=== PATIENT | male | born 1960 | race Caucasian/White ===

== ENCOUNTER 2021-12-28 10:50 | Emergency (ER) | payer OTHER, SELFPAY ==
[2021-12-28] VITALS (19 sets, daily range): BP systolic 68–102; BP diastolic 52–67; PULSE 77–100; RESP 15–18; TEMP 35.8–36.9; O2SAT 93–100; BMI 24.0
--- NOTE | 2021-12-28 11:52 | CT_ITS ---
STUDY: CT ABDOMEN AND PELVIS WITH CONTRAST REASON FOR EXAM: Male, 61 years old. Abdominal pain for several weeks. Six-day history of constipation. Elevated white cell count. RADIATION DOSAGE (If Supplied By Facility): CTDIvol = ( 10.34 ) mGy, DLP = ( 592.83 ) mGycm TECHNIQUE: Transaxial images were obtained from the dome of the diaphragm to the symphysis pubis with oral contrast. Oral and amp; IV Gastrografin and amp; 100mL Isovue-300 was administered. Sagittal and coronal images were reconstructed. Individualized dose optimization techniques were used for this CT. COMPARISON: None. FINDINGS: Tiny left pleural effusion. Patchy infiltrate versus atelectasis in the posterior medial segment of the left lower lobe as well as in the posterolateral aspect of the lingular segment of the left upper lobe. Mild increased markings at the right lung base. The visualized portions of the heart are within normal limits. There is decreased attenuation of the liver consistent with steatosis. Small amount of perihepatic fluid. Normal gallbladder and extrahepatic biliary system. Normal spleen. There is evidence of a 14.2 cm x 2.6 cm x 10.8 cm loculated fluid collection in the perisplenic space in the left upper quadrant. There is also evidence of a rounded 4.2 cm x 3.3 cm x 3.9 cm fluid collection adherent to the greater curvature of the stomach in the region of the lesser sac. This may represent omental metastasis. There is dilatation of the pancreatic duct in the region of the body and tail portions of the pancreas. Small amount of left anterior pararenal fluid collection. Normal bilateral adrenal glands. Normal right kidney. There is a 9 mm cyst in the medial lower pole of the left kidney. Normal visualized stomach. Mildly dilated ileal loops. There is diffuse circumferential wall thickening of the proximal transverse colon up to the region of the splenic flexure with diffuse increased markings in the surrounding mesentery. Diffuse neoplastic process such as lymphoma with omental metastasis within the root of the mesentery should be ruled out. The appendix is visualized and appears normal. 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 A stent is seen in the right common iliac artery. There is obstruction of both common iliac arteries with reconstitution in the region of the external iliac arteries bilaterally. Mural thrombus is seen within the proximal abdominal aorta. Normal inferior vena cava. Normal retroperitoneum. Normal urinary bladder. Small amount of fluid is seen in the pelvis. Small right inguinal hernia containing fluid. Findings suggestive of metastatic skeletal metastasis. Heterogeneous appearance of the visualized thoracic and lumbar vertebrae. Metastatic deposits should be ruled out. There are diffuse degenerative changes of the visualized lumbar spine. CT/Abdomen/Pelvis WITH Contrast IMPRESSION: Findings suggestive of diffuse neoplastic processes of the transverse colon with evidence of omental metastasis in the lesser sac as well as in the perisplenic region in the left upper quadrant as well as in the within the mesentery with mildly increased size of the lymph nodes. 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 Free fluid in the pelvis. Electronically Signed: Anthony Giron MD at 13:59 EST ,
--- NOTE | 2021-12-28 11:52 | EDS_ITS ---
HPI <Dr. Abel Wilson DO - Last Filed: 12/28/21 17:52> HPI - GI History of Present Illness Chief Complaint: Abd Pain Informant: patient Abdominal Pain/Flank Pain Onset: Days Context: Gradual Onset Timing: Continuous Quality: Aching Location: RLQ and LLQ Worsened by: - (Coughing) Relieved by: Nothing Nausea/Vomiting/Emesis GI Symptom: Negative for Nausea and Vomiting Diarrhea/Melena/Hematochezia GI Symptom: Negative for Diarrhea, Melena and Hematochezia Associated Symptoms Associated Symptoms: Negative for Dysuria, Frequency and Hematuria Narrative Narrative: Patient presents with abdominal pain that has been getting worse over the past few days. Patient states he has a right inguinal hernia. Patient states his pain is worse whenever he coughs. Patient describes as dull and aching. Patient states his pain radiates across his lower abdomen. Patient denies any nausea or vomiting. Patient admits to some constipation. Patient denies any melena or hematochezia. Patient denies any dysuria or hematuria. Patient admits to some subjective chills. [facility] <Dr. Abel Wilson DO - Last Filed: 12/28/21 17:52> [facility] Medical History High cholesterol HTN (hypertension) Home Medications aspirin 81 mg tablet,delayed release 81 mg PO DAILY 12/28/21 [History Last Taken 12/28/21] bisoprolol fumarate 5 mg tablet 5 mg PO DAILY 12/28/21 [History Last Taken 12/27/21] lisinopril 20 mg-hydrochlorothiazide 12.5 mg tablet 1 tablet PO DAILY 12/28/21 [History Last Taken 12/27/21] potassium chloride 10 mEq tablet,extended release 10 meq PO DAILY 12/28/21 [History Last Taken 12/27/21] simvastatin 40 mg tablet 40 mg PO DAILY 12/28/21 [History Last Taken 12/27/21] Allergy/AdvReac Type Severity Reaction Status Date / Time No Known Allergies Allergy Unverified 12/28/21 10:53 Surgical History S/P vascular surgery Social History Smoking Status: Current every day smoker tobacco type: cigars ROS <Dr. Abel Wilson, DO - Last Filed: 12/28/21 17:52> ROS ED Constitutional Constitutional ED: Reports chills and subjective; Denies fever(s) Eyes Eyes: Denies blurry vision or change in vision ENT ENT ED: Denies rhinorrhea or sore throat Cardiovascular Cardiovascular: Denies chest pain or palpitations Respiratory/Chest Respiratory/Chest: Reports cough; Denies dyspnea Gastrointestinal Gastrointestinal: Reports abdominal pain and constipation; Denies nausea or vomiting Genitourinary Genitourinary ED: Denies dysuria or hematuria Musculoskeletal Musculoskeletal: Denies back pain or neck pain Integumentary Denies abscess or rash Neurologic Neurologic: Denies headache(s) or weakness Allergic/Immunologic Allergic/Immunologic ED: Denies mouth swelling or urticaria EXAM <Dr. Abel Wilson, DO - Last Filed: 12/28/21 17:52> Physical Exam Const Vital Signs: 12/28/21 10:51 12/28/21 11:06 12/28/21 11:15 Temperature 96.5 F L 96.5 F L Temperature Source Temporal Temporal Pulse Rate 100 100 80 Respiratory Rate 15 15 Blood Pressure 68/55 L 68/55 L 75/53 L Blood Pressure Mean 59 59 60 Pulse Ox 100 100 Oxygen Delivery Method Room Air Room Air 12/28/21 11:30 12/28/21 11:45 12/28/21 12:00 Temperature Temperature Source Pulse Rate 84 83 82 Respiratory Rate Blood Pressure 81/52 L 75/53 L 88/54 L Blood Pressure Mean 61 60 65 Pulse Ox Oxygen Delivery Method 12/28/21 12:15 12/28/21 12:36 12/28/21 13:00 Temperature 96.8 F L 98.3 F Temperature Source Temporal Temporal Pulse Rate 77 79 94 Respiratory Rate 18 18 Blood Pressure 84/62 L 81/56 L 85/54 L Blood Pressure Mean 69 64 64 Pulse Ox 98 97 Oxygen Delivery Method Room Air Room Air 12/28/21 14:00 12/28/21 14:58 12/28/21 16:00 Temperature 98.2 F 98.2 F 98.1 F Temperature Source Temporal Oral Temporal Pulse Rate 92 91 88 Respiratory Rate 17 18 18 Blood Pressure 88/66 L 84/67 L 83/62 L Blood Pressure Mean 73 72 69 Pulse Ox 98 96 96 Oxygen Delivery Method Room Air Room Air Room Air 12/28/21 17:00 12/28/21 18:00 12/28/21 19:00 Temperature 98.3 F 97.9 F 98.0 F Temperature Source Temporal Temporal Temporal Pulse Rate 89 82 82 Respiratory Rate 18 18 18 Blood Pressure 97/56 L 84/66 L 88/62 L Blood Pressure Mean 69 72 70 Pulse Ox 97 97 93 Oxygen Delivery Method Room Air Room Air 12/28/21 20:00 12/28/21 21:00 Temperature 98.1 F 98.2 F Temperature Source Temporal Temporal Pulse Rate 83 85 Respiratory Rate 18 16 Blood Pressure 94/63 93/65 Blood Pressure Mean 73 74 Pulse Ox 95 94 Oxygen Delivery Method Positive well nourished and well developed General Appearance ED: well developed HEENT Reports moist mucous membranes Neck supple and no JVD Resp normal respiratory effort and clear to auscultation bilaterally Cardio regular rate, regular rhythm and no murmurs GI normal to inspection, nondistended, normoactive bowel sounds and non-distended GI Narrative: There is a right inguinal hernia. There is tenderness to palpat ion over this area. There is no erythema or warmth. Auscultation: normoactive bowel sounds Palpation: soft and tender LLQ and RLQ; Negative for guarding or rebound tenderness present Extremity normal to inspection General Extremety ED: Negative for edema or tenderness General Extremity: Negative for edema Neuro oriented x3, CN's II-XII intact bilaterally and no sensory deficits noted Sensorium / Orientation: alert Motor Exam: strength 5/5 throughout Psych mental status grossly normal Skin no rashes or lesions noted <Dr. Sabas Guzman MD - Last Filed: 12/28/21 23:23> Physical Exam Const Vital Signs: 12/28/21 10:51 12/28/21 11:06 12/28/21 11:15 Temperature 96.5 F L 96.5 F L Temperature Source Temporal Temporal Pulse Rate 100 100 80 Respiratory Rate 15 15 Blood Pressure 68/55 L 68/55 L 75/53 L Blood Pressure Mean 59 59 60 Pulse Ox 100 100 Oxygen Delivery Method Room Air Room Air 12/28/21 11:30 12/28/21 11:45 12/28/21 12:00 Temperature Temperature Source Pulse Rate 84 83 82 Respiratory Rate Blood Pressure 81/52 L 75/53 L 88/54 L Blood Pressure Mean 61 60 65 Pulse Ox Oxygen Delivery Method 12/28/21 12:15 12/28/21 12:36 12/28/21 13:00 Temperature 96.8 F L 98.3 F Temperature Source Temporal Temporal Pulse Rate 77 79 94 Respiratory Rate 18 18 Blood Pressure 84/62 L 81/56 L 85/54 L Blood Pressure Mean 69 64 64 Pulse Ox 98 97 Oxygen Delivery Method Room Air Room Air 12/28/21 14:00 12/28/21 14:58 12/28/21 16:00 Temperature 98.2 F 98.2 F 98.1 F Temperature Source Temporal Oral Temporal Pulse Rate 92 91 88 Respiratory Rate 17 18 18 Blood Pressure 88/66 L 84/67 L 83/62 L Blood Pressure Mean 73 72 69 Pulse Ox 98 96 96 Oxygen Delivery Method Room Air Room Air Room Air 12/28/21 17:00 12/28/21 18:00 12/28/21 19:00 Temperature 98.3 F 97.9 F 98.0 F Temperature Source Temporal Temporal Temporal Pulse Rate 89 82 82 Respiratory Rate 18 18 18 Blood Pressure 97/56 L 84/66 L 88/62 L Blood Pressure Mean 69 72 70 Pulse Ox 97 97 93 Oxygen Delivery Method Room Air Room Air 12/28/21 20:00 12/28/21 21:00 Temperature 98.1 F 98.2 F Temperature Source Temporal Temporal Pulse Rate 83 85 Respiratory Rate 18 16 Blood Pressure 94/63 93/65 Blood Pressure Mean 73 74 Pulse Ox 95 94 Oxygen Delivery Method [facility] <Dr. Abel Wilson, DO - Last Filed: 12/28/21 17:52> [facility] Narrative Medical decision making narrative: Patient was given IV fluids. CBC shows a leukocytosis of 18.3. Comprehensive metabolic profile was obtained. Potassium was low at 2.0. BUN was 55 and creatinine was 1.21. PT with INR and PTT are within normal limits. Lactate was elevated at 3.5. CT scan of the abdomen pelvis was obtained. There is findings suggestive of neoplastic process of the transverse colon with evidence of omental metastasis in the lesser sac as well as in the perisplenic region in the left upper quadrant. There are increased mesenteric lymph nodes. There is occlusion of the distal portion of the abdominal aorta but there is collateral flow to the external iliac arteries bilaterally. There is free fluid in the pelvis. This was interpreted by the radiologist and reviewed by myself. EKG was obtained. On my interpretation, there is a normal sinus rhythm with a rate of 88. There are occasional PACs. There is a right bundle branch block pattern noted. There are no acute ST or T wave changes. ME interval, QTC interval, and axis are normal. Case was discussed with Dr. Padilla from general surgery. He was in to evaluate the patient. He is unable to take the patient to the operating room today. He requested the patient be transferred. Case was discussed with [facility]. Patient was accepted there. We are currently awaiting a bed. Patient is blood pressure remained low. Patient will be started on Levophed if his mean arterial pressure is less than 65. Patient and family understand and are agreeable with the plan. All questions were answered. Lab Data Attestation: I reviewed the patient's lab results. Labs: Laboratory Results - last 24 hr 12/28/21 12/28/21 12/28/21 11:11 11:11 11:11 WBC 18.3 H RBC 4.20 L Hgb 14.6 Hct 41.7 MCV 99.3 H MCH 34.8 H MCHC 35.0 RDW Std Deviation 47.0 H RDW Coeff of Kiko 12.9 Plt Count 380 MPV 10.5 Immature Gran % (Auto) 1.300 H Neut % (Auto) 86.4 H Lymph % (Auto) 6.5 L [place] % (Auto) 5.4 Eos % (Auto) 0.1 Baso % (Auto) 0.3 Absolute Neuts (auto) 15.8 H Absolute Lymphs (auto) 1.18 Nucleated RBC % 0 PT 14.9 INR 1.2 APTT 28.8 Sodium 135 L Potassium 2.0 L* Chloride 95 L Carbon Dioxide 31.0 Anion Gap 9 BUN 55 H Creatinine 1.21 Estim Creat Clear Calc 62.81 Est GFR (MDRD) Af Amer 79 Est GFR (MDRD) Non-Af 65 BUN/Creatinine Ratio 45.5 H Glucose 163 H Lactic Acid Calcium 8.5 Total Bilirubin 1.20 H AST 23 ALT 18 Alkaline Phosphatase 148 H Total Protein 6.5 Albumin 1.6 L Globulin 4.9 H Albumin/Globulin Ratio 0.3 L Urine Color Urine Clarity Urine pH Ur Specific [place] Urine Protein Urine Glucose (UA) Urine Ketones Urine Occult Blood Urine Nitrite Urine Bilirubin Urine Urobilinogen Ur Leukocyte Esterase Urine RBC Urine WBC Ur Squamous Epith Cells Urine Bacteria Urine Mucus 12/28/21 12/28/21 12/28/21 11:11 16:30 17:10 WBC RBC Hgb Hct MCV MCH MCHC RDW Std Deviation RDW Coeff of Kiko Plt Count MPV Immature Gran % (Auto) Neut % (Auto) Lymph % (Auto) [place] % (Auto) Eos % (Auto) Baso % (Auto) Absolute Neuts (auto) Absolute Lymphs (auto) Nucleated RBC % PT INR APTT Sodium Potassium Chloride Carbon Dioxide Anion Gap BUN Creatinine Estim Creat Clear Calc Est GFR (MDRD) Af Amer Est GFR (MDRD) Non-Af BUN/Creatinine Ratio Glucose Lactic Acid 3.5 H* 1.1 Calcium Total Bilirubin AST ALT Alkaline Phosphatase Total Protein Albumin Globulin Albumin/Globulin Ratio Urine Color Yellow Urine Clarity Clear Urine pH 6.5 Ur Specific [place] 1.010 Urine Protein 15 H Urine Glucose (UA) Normal Urine Ketones Negative Urine Occult Blood 10 H Urine Nitrite Negative Urine Bilirubin Negative Urine Urobilinogen 4 H Ur Leukocyte Esterase Negative Urine RBC 0 SEEN Urine WBC 0 SEEN Ur Squamous Epith Cells 0 SEEN Urine Bacteria 0 SEEN Urine Mucus 0 SEEN Radiography Diagnostic Testing: Clinical Impression(s) from Imaging Studies Abdomen/Pelvis CT 12/28/21 11:52 IMPRESSION: Findings suggestive of diffuse neoplastic processes of the transverse colon with evidence of omental metastasis in the lesser sac as well as in the perisplenic region in the left upper quadrant as well as in the within the mesentery with mildly increased size of the lymph nodes. 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 Free fluid in the pelvis. Electronically Signed: Anthony Giron MD at 13:59 EST , Chest X-Ray 12/28/21 16:00 IMPRESSION: Left basilar atelectasis. Electronically Signed: Van Pineda DO at 17:24 EST , <Dr. Sabas Guzman MD - Last Filed: 12/28/21 23:23> [facility] Narrative Medical decision making narrative: Patient presents with incarcerated hernia. Patient's CAT scan revealed diffuse neoplastic process of the transverse colon with evidence of metastasis to the omentum. There is also evidence of ascites. Patient was initially treated with Zosyn and vancomycin. Attempts were made to transfer. Patient was eventually accepted to [facility] by surgeon. Dr. Padilla facilitated/help with transfer. Patient has received fluid boluses. He has parameters for the administration of Levophed. Lab Data Attestation: I reviewed the patient's lab results. Lab results narrative: White count is elevated. Patient has profound hypokalemia. Anion gap is normal. Coags are normal. Glucose is slightly elevated 165. GFR is 60. Lactate was elevated 3.1 Gibran like is 1.1. Labs: Laboratory Results - last 24 hr 12/28/21 12/28/21 12/28/21 11:11 11:11 11:11 WBC 18.3 H RBC 4.20 L Hgb 14.6 Hct 41.7 MCV 99.3 H MCH 34.8 H MCHC 35.0 RDW Std Deviation 47.0 H RDW Coeff of Kiko 12.9 Plt Count 380 MPV 10.5 Immature Gran % (Auto) 1.300 H Neut % (Auto) 86.4 H Lymph % (Auto) 6.5 L [place] % (Auto) 5.4 Eos % (Auto) 0.1 Baso % (Auto) 0.3 Absolute Neuts (auto) 15.8 H Absolute Lymphs (auto) 1.18 Nucleated RBC % 0 PT 14.9 INR 1.2 APTT 28.8 Sodium 135 L Potassium 2.0 L* Chloride 95 L Carbon Dioxide 31.0 Anion Gap 9 BUN 55 H Creatinine 1.21 Estim Creat Clear Calc 62.81 Est GFR (MDRD) Af Amer 79 Est GFR (MDRD) Non-Af 65 BUN/Creatinine Ratio 45.5 H Glucose 163 H Lactic Acid Calcium 8.5 Total Bilirubin 1.20 H AST 23 ALT 18 Alkaline Phosphatase 148 H Total Protein 6.5 Albumin 1.6 L Globulin 4.9 H Albumin/Globulin Ratio 0.3 L Urine Color Urine Clarity Urine pH Ur Specific [place] Urine Protein Urine Glucose (UA) Urine Ketones Urine Occult Blood Urine Nitrite Urine Bilirubin Urine Urobilinogen Ur Leukocyte Esterase Urine RBC Urine WBC Ur Squamous Epith Cells Urine Bacteria Urine Mucus 12/28/21 12/28/21 12/28/21 11:11 16:30 17:10 WBC RBC Hgb Hct MCV MCH MCHC RDW Std Deviation RDW Coeff of Kiko Plt Count MPV Immature Gran % (Auto) Neut % (Auto) Lymph % (Auto) [place] % (Auto) Eos % (Auto) Baso % (Auto) Absolute Neuts (auto) Absolute Lymphs (auto) Nucleated RBC % PT INR APTT Sodium Potassium Chloride Carbon Dioxide Anion Gap BUN Creatinine Estim Creat Clear Calc Est GFR (MDRD) Af Amer Est GFR (MDRD) Non-Af BUN/Creatinine Ratio Glucose Lactic Acid 3.5 H* 1.1 Calcium Total Bilirubin AST ALT Alkaline Phosphatase Total Protein Albumin Globulin Albumin/Globulin Ratio Urine Color Yellow Urine Clarity Clear Urine pH 6.5 Ur Specific [place] 1.010 Urine Protein 15 H Urine Glucose (UA) Normal Urine Ketones Negative Urine Occult Blood 10 H Urine Nitrite Negative Urine Bilirubin Negative Urine Urobilinogen 4 H Ur Leukocyte Esterase Negative Urine RBC 0 SEEN Urine WBC 0 SEEN Ur Squamous Epith Cells 0 SEEN Urine Bacteria 0 SEEN Urine Mucus 0 SEEN Radiography Diagnostic Testing: Clinical Impression(s) from Imaging Studies Abdomen/Pelvis CT 12/28/21 11:52 IMPRESSION: Findings suggestive of diffuse neoplastic processes of the transverse colon with evidence of omental metastasis in the lesser sac as well as in the perisplenic region in the left upper quadrant as well as in the within the mesentery with mildly increased size of the lymph nodes. 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 Free fluid in the pelvis. Electronically Signed: Anthony Giron MD at 13:59 EST , Chest X-Ray 12/28/21 16:00 IMPRESSION: Left basilar atelectasis. Electronically Signed: Van Pineda DO at 17:24 EST , <Dr. Abel Wilson, - Last Filed: 12/28/21 17:52> Critical Care Time Critical Care Time: Yes Critical care time (excluding procedures): 30-74 minutes (37), Including time spent:, Discussing w/Patient &/or Family/Stave And Bolt Equalizer, Discussing w/Consultants, Arranging Admission or Transfer and Performing Direct Patient Care at Bedside Discharge Plan Triage Chief Complaint: Abd Pain ED Provider: Abel Wilson Dx/Rx/DC Orders Clinical Impression: Acute hypotension, Acidosis, lactic, Cancer of transverse colon, Omental metastasis, Irreducible right inguinal hernia, Ascites, malignant Prescriptions: No Action lisinopril-hydrochlorothiazide 20-12.5 mg tablet 1 tablet PO DAILY RF: 0 bisoprolol fumarate 5 mg tablet 5 mg PO DAILY RF: 0 simvastatin 40 mg tablet 40 mg PO DAILY RF: 0 potassium chloride 10 mEq tablet extended release 10 meq PO DAILY RF: 0 aspirin 81 mg tablet,delayed release (DR/EC) 81 mg PO DAILY RF: 0 Primary Care Provider: Edgardo Frankel Referrals: Edgardo Frankel DO [Primary Care Provider] - Disposition Disposition: Acute Care Hospital Discharge Location: [facility]
[2021-12-28 12:21] LABS: International Normalized Ratio 1.2; Prothrombin Time (Protime)PT. 14.9 SECONDS (11.7-14.9)
[2021-12-28 12:22] LABS: Absolute Lymphocyte Count 1.18 X10^3/uL (0.83-4.51); Absolute Neutrophil Count 15.8 X10^3/uL (2.0-7.7); Basophil# 0.06 X10^3/uL; Basophil% 0.3 % (0-1); Eosinophil# 0.01 X10^3/uL; Eosinophils% 0.1 % (0-5); Hematocrit 41.7 % (40-54); Hemoglobin 14.6 g/dL (13.0-16.5); Lymphocyte # 1.18 X10^3/ul (0.83-4.51); Lymphocyte % 6.5 % (19-41); Mean Corpuscular Hgb 34.8 pg (27.0-32.0); Mean Corpuscular Volume 99.3 fL (80-94); Mean Platelet Vol. 10.5 fl (6.2-12.0); Monocyte# 0.98 X10^3/uL; Monocyte% 5.4 % (0-10); NRBC Flagged by Analyzer 0 % (0-5); Neutrophil # 15.81 X10^3/uL (2.7-7.7); Neutrophil % 86.4 % (47-70); Partial Thromboplast Time 28.8 Seconds (24.1-36.2); Platelet Count 380 K/mm3 (150-450); RBC Distribution Width CV 12.9 % (11.6-14.6); White Blood Count 18.3 K/mm3 (4.4-11.0)
[2021-12-28 13:07] LABS: ALB/GLOB Ratio 0.3 RATIO (0.9-2.4); AST(SGOT) 23 U/L (15-37); Alanine Aminotransfer ALT/SGPT 18 U/L (16-61); Albumin, Serum 1.6 g/dL (3.2-5.0); Alkaline Phosphatase 148 U/L (45-117); Anion Gap 9 (5-15); BUN 55 mg/dL (7-18); BUN/Creat Ratio 45.5 RATIO (10-20); Calcium,Total 8.5 mg/dL (8.5-10.1); Chloride 95 mmol/L (98-107); Creatinine, Serum 1.21 mg/dL (0.70-1.30); EST Glomerular Filtration Rate 65 mL/min (>60); Est Glom Filt Rate - Afr Amer 79 mL/min (>60); Estimated Creatinine Clearance 62.81 ml/min; Globulin 4.9 g/dL (2.2-4.2); Glucose 163 mg/dL (74-106); Protein, Total 6.5 g/dL (6.4-8.2); Sodium Level 135 mmol/L (136-145)
[2021-12-28 13:08] LABS: Lactic Acid 3.5 mmol/L (0.4-1.9)
[2021-12-28] MEDS: 0.9% Normal Saline 1,000 ML 1000 ML IV (14:01)
--- NOTE | 2021-12-28 14:13 | ED.RN ---
Attempted to obtain pt's urine sample, states he is unable to void still at this point.
--- NOTE | 2021-12-28 14:44 | EKG12_ITS ---
Test Reason : Blood Pressure : / mmHG Vent. Rate : 088 BPM Atrial Rate : 078 BPM P-R Int : 162 ms QRS Dur : 144 ms QT Int : 456 ms P-R-T Axes : 072 073 047 degrees QTc Int : 551 ms Sinus rhythm with Premature supraventricular complexes Right bundle branch block Abnormal ECG Confirmed by DIANA CELAYA, GIANNI ([id number]), features editor PATIENCE DANGELO ([id number]) on 12/30/2021 11:34:25 AM Referred By: MILANA Confirmed By:GIANNI ORTIZ MD
[2021-12-28] MEDS: Vancomycin IV 1,000 MG/200 ML BAG 200 MG IV (15:47)
--- NOTE | 2021-12-28 16:00 | RAD_ITS ---
STUDY: X-RAY CHEST REASON FOR EXAM: Male, 61 years old. Central line placement TECHNIQUE: Frontal view COMPARISON: None. FINDINGS: A right-sided shunt catheter is noted. The lungs are expanded. Left basilar atelectasis. Normal size heart. Normal mediastinum and johan. Normal visualized pulmonary arteries. Normal visualized aortic arch and descending thoracic aorta. Degenerative changes of the thoracic spine. Status post cervical surgical fusion. Normal visualized ribs, clavicles, and shoulders. There is no demonstrated abnormality of the visualized soft tissue structures of the upper abdomen. RAD/CXR for Line Placement IMPRESSION: Left basilar atelectasis. Electronically Signed: Van Pineda DO at 17:24 EST Reading Location ID and State: [facility] / [place] Tel [phone], Service support ,
[2021-12-28 16:13] LABS: Reflex Lactate? Y
[2021-12-28] MEDS: Potassium Chloride 10mEq/100mL 10 MEQ/100 ML IV.SOLN. 200 MEQ IV BOLUS ×2 (16:22→17:03)
--- NOTE | 2021-12-28 16:26 | HP.PCM_ITS ---
HPI - General HPI Narrative NIA CASTLE, is a 61 M who presented to [facility] ER directly from [facility] office as he was initially scheduled for an outpatient appointment with Dr. Bishop concerning a right inguinal hernia. However, during his brief visit he was very unstable with his gait, he described pain complaints that prohibited exam, and his vitals suggested significant hypotension so he was transferred to the emergency room. In the emergency department, his blood pressure was confirmed to be quite low with a map in the low 60s. Laboratories were significant for profound leukocytosis of 18,000, mild lactic acidosis of 3.5, and profound hypokalemia of 2.0. CT imaging of the abdomen and pelvis was obtained and this showed a surprising finding of thickened distal transverse colon suggestive of a neoplastic process with numerous possible peritoneal implants throughout the lesser sac as well as possible evidence of bone metastasis. On further history with the patient, he states that he really has been feeling poorly since before his hernia incident on December 14. His states that he has been more fatigued and losing weight. He also complains of significant constipation. He reports his last bowel movement was some 5 days ago. Given these symptoms, he has been unable to eat more than a cup of peaches or pears for the last 2-1/2 weeks. Mr. Castle has had a prior colonoscopy, but he estimates this was some 20 years ago. The only family history for colon cancer that he is aware of comes from his uncle who is currently 89 and has been diagnosed for the past 20 years. He does also relate that his mother from pancreatic cancer. [facility] Medical History High cholesterol HTN (hypertension) Home Medications aspirin 81 mg tablet,delayed release 81 mg PO DAILY 12/28/21 [History Last Taken 12/28/21] bisoprolol fumarate 5 mg tablet 5 mg PO DAILY 12/28/21 [History Last Taken 12/27/21] lisinopril 20 mg-hydrochlorothiazide 12.5 mg tablet 1 tablet PO DAILY 12/28/21 [History Last Taken 12/27/21] potassium chloride 10 mEq tablet,extended release 10 meq PO DAILY 12/28/21 [History Last Taken 12/27/21] simvastatin 40 mg tablet 40 mg PO DAILY 12/28/21 [History Last Taken 12/27/21] Allergy/AdvReac Type Severity Reaction Status Date / Time No Known Allergies Allergy Unverified 12/28/21 10:53 Surgical History S/P vascular surgery Social History Smoking Status: Current every day smoker tobacco type: cigars Vital Signs Vital Signs Vital Signs: 12/28/21 10:51 12/28/21 11:06 12/28/21 11:15 Temperature 96.5 F L 96.5 F L Temperature Source Temporal Temporal Pulse Rate 100 100 80 Respiratory Rate 15 15 Blood Pressure 68/55 L 68/55 L 75/53 L Blood Pressure Mean 59 59 60 Pulse Ox 100 100 Oxygen Delivery Method Room Air Room Air 12/28/21 11:30 12/28/21 11:45 12/28/21 12:00 Temperature Temperature Source Pulse Rate 84 83 82 Respiratory Rate Blood Pressure 81/52 L 75/53 L 88/54 L Blood Pressure Mean 61 60 65 Pulse Ox Oxygen Delivery Method 12/28/21 12:15 12/28/21 12:36 12/28/21 13:00 Temperature 96.8 F L 98.3 F Temperature Source Temporal Temporal Pulse Rate 77 79 94 Respiratory Rate 18 18 Blood Pressure 84/62 L 81/56 L 85/54 L Blood Pressure Mean 69 64 64 Pulse Ox 98 97 Oxygen Delivery Method Room Air Room Air 12/28/21 14:00 12/28/21 14:58 Temperature 98.2 F 98.2 F Temperature Source Temporal Oral Pulse Rate 92 91 Respiratory Rate 17 18 Blood Pressure 88/66 L 84/67 L Blood Pressure Mean 73 72 Pulse Ox 98 96 Oxygen Delivery Method Room Air Room Air Weight Weight: 158 lb Body Mass Index (BMI) 24.0 Physical Exam Narrative Patient is plethoric starting about the level of his clavicles cephalad with somewhat stoic countenance Const alert and oriented x3 Constitutional Narrative: Distressed by news from imaging as well as abdominal complaints General Appearance: cooperative GI GI Narrative: Slender, tense, tender to palpation of the left upper quadrant and left lower quadrant. There is guarding present. Results Lab / Micro Data Result Diagrams: 12/28/21 11:11 12/28/21 11:11 Labs: Laboratory Results - last 24 hr 12/28/21 11:11: WBC 18.3 H, RBC 4.20 L, Hgb 14.6, Hct 41.7, MCV 99.3 H, MCH 34.8 H, MCHC 35.0, RDW Std Deviation 47.0 H, RDW Coeff of Kiko 12.9, Plt Count 380, MPV 10.5, Immature Gran % (Auto) 1.300 H, Neut % (Auto) 86.4 H, Lymph % (Auto) 6.5 L, [place] % (Auto) 5.4, Eos % (Auto) 0.1, Baso % (Auto) 0.3, Absolute Neuts (auto) 15.8 H, Absolute Lymphs (auto) 1.18, Nucleated RBC % 0 12/28/21 11:11: Sodium 135 L, Potassium 2.0 L*, Chloride 95 L, Carbon Dioxide 31.0, Anion Gap 9, BUN 55 H, Creatinine 1.21, Estim Creat Clear Calc 62.81, Est GFR (MDRD) Af Amer 79, Est GFR (MDRD) Non-Af 65, BUN/Creatinine Ratio 45.5 H, Glucose 163 H, Calcium 8.5, Total Bilirubin 1.20 H, AST 23, ALT 18, Alkaline Phosphatase 148 H, Total Protein 6.5, Albumin 1.6 L, Globulin 4.9 H, Albumin/Globulin Ratio 0.3 L 12/28/21 11:11: PT 14.9, INR 1.2, APTT 28.8 12/28/21 11:11: Lactic Acid 3.5 H* Micro: Microbiology 12/28/21 12:00 Nasal Secretion SARS-CoV-2 Antigen (Rapid) - Final Radiology Impression Abdomen/Pelvis CT 12/28/21 11:52 IMPRESSION: Findings suggestive of diffuse neoplastic processes of the transverse colon with evidence of omental metastasis in the lesser sac as well as in the perisplenic region in the left upper quadrant as well as in the within the mesentery with mildly increased size of the lymph nodes. 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 Free fluid in the pelvis. Electronically Signed: Anthony Giron MD at 13:59 EST , Assessment & Plan Assessment/Plan (1) Right inguinal hernia: PLAN: Patient with right inguinal hernia and small amount of fluid contained within hernia sac (2) Abnormal CT scan, colon: PLAN: This is a 61-year-old male who presents in acute distress related to significant abdominal discomfort and severe constipation. He remains relatively hypotensive despite resuscitation with 3 L normal saline. Laboratories show a leukocytosis, lactic acidosis, and profound hypokalemia. CT imaging is concerning for probable neoplastic process involving the patient's distal transverse colon as well as metastatic deposits throughout the peritoneal cavity and potentially skeletal metastases. Both patient and his spouse admit that his general malaise predates his event at work and the development of a right inguinal hernia. Given the patient's vital signs, laboratories, imaging, and exam, I believe he requires urgent operative evaluation to ascertain the viability of his colon and other viscera. I am concerned that, given the advanced nature of this neoplastic process and his clinical instability, he will quickly exceed the resource offerings of this facility. Therefore, I have recommended transfer to a tertiary care facility. In the meantime, I have placed a central venous catheter for expedited replacement of the patient's potassium as he faces what is likely an imminent anesthetic. Patient should be held n.p.o. in anticipation of probable procedure. Continue empiric IV antibiotic coverage per emergency medicine. Charges/Coding Visit Charges Inpatient E&M: 97920 Init Hosp L2
--- NOTE | 2021-12-28 16:26 | PCM.OP.PRO ---
Procedure Report Date of Procedure: 12/28/21 Procedure name: Insertion of 7 Palestinian, triple-lumen central venous catheter (16 cm length) Procedure detail: After obtaining consent from patient, the patient was positioned in Trendelenburg to facilitate filling of the central veins of the neck. The head was positioned to the left to allow access to the right neck. The right internal jugular vein was localized using bedside ultrasound. It appeared to be widely patent with good flow on color Doppler. The superficial tissues of the neck were then anesthetized with a local block using 5 mL 1% Xylocaine. Under direct ultrasound guidance the vein was accessed with return of dark red blood. Using a Seldinger technique a guidewire was placed without difficulty. The guidewire tract was then opened at the skin with an 11 blade and dilated dilated. Then the central venous catheter was inserted into the vein. All ports aspirated and flushed ease. The catheter was then sewn in using 0 silk in three-point fixation. Insertion site was cleaned and a chlorhexidine dressing was placed about the catheter to maintain sterility. A post procedure chest x-ray was obtained to verify the position of the catheter. Complications: None EBL: 10mL
[2021-12-28 17:00] LABS: Lactic Acid 1.1 mmol/L (0.4-1.9)
[2021-12-28 17:17] LABS: Bacteria 0 SEEN /hpf (None Seen); Mucous, Urine 0 SEEN /hpf (<or=2+); Red Blood Cells-Urine 0 SEEN /hpf (0-5); Squamous Epithelial Cells - UA 0 SEEN /hpf (0-5); White Blood Cells 0 SEEN /hpf (0-5)
[2021-12-28 17:23] LABS: Color, Urine Yellow (Yellow); Glucose, Dipstick Normal (Normal); Ketone-Dipstick Negative (Negative); Leukocyte Esterase-Dipstick Negative /ul (Negative); Nitrite-Dipstick Negative (Negative); Occult Blood-Urine 10 /ul (Negative); Protein-Dipstick 15 mg/dl (Negative); Urine Bilirubin Dipstick Negative (Negative); Urine Clarity Clear (Clear); Urine Urobilinogen 4 mg/dl (Normal); Urine pH 6.5 (5.0 - 8.0)
[2021-12-28] MEDS: Morphine 4 MG/ML Syringe IV ×2 (18:22→22:31)
[2021-12-28] MEDS: Potassium Chloride 20mEq/100mL 20 MEQ/100 ML IV.SOLN. 100 MEQ IV BOLUS ×2 (22:31→23:25)
[2021-12-29] VITALS: BP 93/61; PULSE 88; RESP 18; TEMP 36.6; O2SAT 93
[2021-12-29] MEDS: HYDROmorphone 0.5 MG/0.5 ML SYRINGE IV (00:38)
== END 2021-12-29 01:13 | disposition short-term general hospital (02) ==
PROVIDERS: Emergency Provider Emergency Medicine; PCP Student in an Organized Health Care Education/Training Program; Visit Provider Emergency Medicine
DX: C18.4 Malignant neoplasm of transverse colon (principal); C78.6 Secondary malignant neoplasm of retroperitoneum and peritoneum; E87.2 Acidosis; I95.9 Hypotension, unspecified; K40.90 Unilateral inguinal hernia, without obstruction or gangrene, not specified as recurrent; F17.290 Nicotine dependence, other tobacco product, uncomplicated; R18.8 Other ascites; E78.00 Pure hypercholesterolemia, unspecified; I10 Essential (primary) hypertension; Z79.82 Long term (current) use of aspirin; Z79.899 Other long term (current) drug therapy
CPT/HCPCS: 51702; 71045; 74177; 80053; 81001; 83605; 85025; 85610; 85730; 87040; 87426; 93005; 96365; 96366; 96367; 96375; 96376; 99285; J7030; J7040; J7050; Q9967; A4216; C1751

== ENCOUNTER 2022-01-18 04:00 | Outpatient (REF) | payer SELFPAY ==
[2022-01-18 08:41] LABS: Absolute Lymphocyte Count 1.76 X10^3/uL (0.83-4.51); Absolute Neutrophil Count 6.3 X10^3/uL (2.0-7.7); Basophil# 0.02 X10^3/uL; Basophil% 0.2 % (0-1); Eosinophil# 0.23 X10^3/uL; Eosinophils% 2.5 % (0-5); Hematocrit 26.2 % (40-54); Lymphocyte # 1.76 X10^3/ul (0.83-4.51); Lymphocyte % 19.3 % (19-41); Mean Corp Hgb Conc 30.5 g/dL (32-36); Mean Corpuscular Hgb 29.9 pg (27.0-32.0); Mean Corpuscular Volume 97.8 fL (80-94); Mean Platelet Vol. 9.7 fl (6.2-12.0); Monocyte# 0.78 X10^3/uL; Monocyte% 8.6 % (0-10); NRBC Flagged by Analyzer 0 % (0-5); Neutrophil # 6.26 X10^3/uL (2.7-7.7); Neutrophil % 68.9 % (47-70); POSITIVE MORPHOLOGY YES; Platelet Count 458 K/mm3 (150-450); Red Blood Count 2.68 M/mm3 (4.6-6.2); White Blood Count 9.1 K/mm3 (4.4-11.0)
[2022-01-18 08:50] LABS: Differential Indicated SCAN CRITERIA MET
[2022-01-18 08:56] LABS: Vitamin B12 602 pg/mL (211-911)
[2022-01-18 09:09] LABS: Anion Gap 4 (5-15); BUN 6 mg/dL (7-18); BUN/Creat Ratio 18.5 RATIO (10-20); Calcium,Total 7.8 mg/dL (8.5-10.1); Chloride 108 mmol/L (98-107); Creatinine, Serum 0.32 mg/dL (0.70-1.30); EST Glomerular Filtration Rate 297 mL/min (>60); Est Glom Filt Rate - Afr Amer 359 mL/min (>60); Glucose 96 mg/dL (74-106); Magnesium 1.9 mg/dL (1.6-2.6); Potassium 3.3 mmol/L (3.5-5.1); Prealbumin 8.7 mg/dL (20.0-40.0); Sodium Level 139 mmol/L (136-145); Thyroid Stim Hormone (TSH) 0.26 uIU/mL (0.358-3.74)
== END 2022-01-18 23:59 | disposition home or self-care (01) ==
LOC: OLS.SW300 04:00
PROVIDERS: PCP Student in an Organized Health Care Education/Training Program; Referring Provider Internal Medicine; Visit Provider Internal Medicine
DX: I10 Essential (primary) hypertension (principal); K55.9 Vascular disorder of intestine, unspecified; S91.309A Unspecified open wound, unspecified foot, initial encounter
CPT/HCPCS: 36415; 80048; 82607; 83735; 84134; 84443; 85025

== ENCOUNTER → 2022-01-25 | Outpatient (REF) | payer SELFPAY ==
[2022-01-25 08:41] LABS: Anion Gap 5 (5-15); BUN 14 mg/dL (7-18); BUN/Creat Ratio 32.3 RATIO (10-20); Calcium,Total 8.4 mg/dL (8.5-10.1); Chloride 107 mmol/L (98-107); Creatinine, Serum 0.43 mg/dL (0.70-1.30); EST Glomerular Filtration Rate 213 mL/min (>60); Est Glom Filt Rate - Afr Amer 257 mL/min (>60); Glucose 103 mg/dL (74-106); Potassium 3.2 mmol/L (3.5-5.1); Sodium Level 138 mmol/L (136-145); Thyroid Stim Hormone (TSH) 0.23 uIU/mL (0.358-3.74)
== END | disposition home or self-care (01) ==
LOC: OLS.SW300 04:00
PROVIDERS: PCP Student in an Organized Health Care Education/Training Program; Visit Provider Internal Medicine
DX: K55.9 Vascular disorder of intestine, unspecified (principal)
CPT/HCPCS: 36415; 80048; 84443

== ENCOUNTER 2022-07-25 12:50 | Inpatient (IN) | payer BC, SELFPAY ==
[2022-07-25 12:51] VITALS: BP 128/88; PULSE 108; RESP 16; TEMP 37.2; O2SAT 100; BMI 22.0
--- NOTE | 2022-07-25 13:55 | EDS_ITS ---
HPI HPI - GI History of Present Illness Chief Complaint: Abd Pain Detail of Chief Complaint: Abdominal pain x3 days Informant: patient Narrative Narrative: Patient presents with abdominal pain for last 3 days. Patient with decreased p.o. intake since receiving chemotherapy 5 days ago. Complains of pain below his ileostomy site. He denies fever. He had nausea but no vomiting. Patient spoke with his oncologist and was advised to be evaluated emergency department. Patient with history of ischemic colitis with colectomy. Patient also has history of stage IV pancreatic cancer. Patient has been generally weak and in bed for the last 3 days. Currently not on hospice or palliative care. [facility] Medical History High cholesterol HTN (hypertension) Home Medications aspirin 81 mg tablet,delayed release 81 mg PO DAILY 12/28/21 [History Last Taken 12/28/21] bisoprolol fumarate 5 mg tablet 5 mg PO DAILY 12/28/21 [History Last Taken 12/27/21] lisinopril 20 mg-hydrochlorothiazide 12.5 mg tablet 1 tablet PO DAILY 12/28/21 [History Last Taken 12/27/21] potassium chloride 10 mEq tablet,extended release 10 meq PO DAILY 12/28/21 [History Last Taken 12/27/21] simvastatin 40 mg tablet 40 mg PO DAILY 12/28/21 [History Last Taken 12/27/21] Allergy/AdvReac Type Severity Reaction Status Date / Time No Known Allergies Allergy Verified 07/25/22 12:55 Surgical History S/P vascular surgery Social History Smoking Status: Light Smoker (<10/day) ROS ROS ED Review of Systems ROS Unobtainable: other Constitutional Constitutional ED: Reports lethargy; Denies chills, fever(s), sweats or weight loss Eyes Eyes: Denies blurry vision, change in vision or diplopia ENT ENT ED: Denies rhinorrhea or sore throat Cardiovascular Cardiovascular: Reports racing heartbeat; Denies chest pain, orthopnea or palpitations Respiratory/Chest Respiratory/Chest: Reports dyspnea and dyspnea on exertion; Denies cough, orthopnea or sputum Gastrointestinal Gastrointestinal: Reports abdominal pain and nausea; Denies diarrhea or vomiting Genitourinary Genitourinary ED: Denies dysuria, hematuria or urinary frequency Musculoskeletal Musculoskeletal: Denies arthralgias, back pain, myalgias or neck pain Integumentary Denies abscess, Abrasions or rash Neurologic Neurologic: Denies headache(s) or weakness Psychiatric Psychiatric: Denies anxiety, depression or suicidal thoughts Endocrine Endocrinology: Denies polydipsia, polyphagia or polyuria Hematologic/Lymphatic Hematologic/Lymphatic: Denies easy bleeding, easy bruising or lymphadenopathy Allergic/Immunologic Allergic/Immunologic ED: Denies mouth swelling, tongue swelling or urticaria EXAM Physical Exam Const Vital Signs: 07/25/22 12:51 07/25/22 15:15 Temperature 98.9 F 98.2 F Temperature Source Temporal Oral Pulse Rate 108 H 85 Respiratory Rate 16 16 Blood Pressure 128/88 H 139/81 H Blood Pressure Mean 101 100 Pulse Ox 100 99 Oxygen Delivery Method Room Air Positive well nourished and well developed General Appearance ED: well developed and NAD HEENT Reports TM's clear and moist mucous membranes normocephalic and atraumatic; Negative for trauma or tenderness Tympanic Membrane ED: Yes TM's clear Eyes PERRL and EOMs intact bilaterally General Eye ED: Negative for pale conjunctiva or scleral icterus Neck no lymphadenopathy, supple and no JVD General: Negative for tenderness Chest Wall inspection of chest normal and palpation of chest normal Chest: Negative for tenderness Resp normal respiratory effort and clear to auscultation bilaterally Effort and Inspection: Negative for respiratory distress or pain with movement Auscultation: Negative for rhonchi, wheezes or diminished lung sounds Cardio regular rate, regular rhythm, S1 normal heart sound, S2 normal heart sound and no murmurs Peripheral Pulses: pulses 2+ throughout GI normal to inspection, nondistended, normoactive bowel sounds, soft to palpation, non-distended and no masses GI Narrative: Patient has a ostomy in the right lower quadrant and just inferior to it he complains of pain on palpation. I do not palpate any masses. There is no erythema or warmth noted. There is no rebound, rigidity, or peritoneal signs. There is brown stool in the ostomy bag. Back/Spine no CVA tenderness and no thoracic nor lumbar tenderness Extremity normal to inspection General Extremety ED: Negative for edema General Extremity: Negative for edema Neuro oriented x3, CN's II-XII intact bilaterally, no sensory deficits noted and gait normal Sensorium / Orientation: awake, alert, oriented to person, oriented to place and oriented to time Motor Exam: strength 5/5 throughout and strength abnormal Psych mental status grossly normal Skin no rashes or lesions noted and no wounds MDM MDM MDM Narrative Medical decision making narrative: Damage. Patient is given normal saline. Lab work-up was significant for a leukopenia related to his chemotherapy. Chemistries unremarkable. LFTs were un remarkable other than a slight elevated alk phos of 206. His lipase was normal at 208. Lactate was 1.0. Patient did develop more lower abdominal pain and received a milligram of Dilaudid IV as well as Zofran 4 mg IV. This point patient's feeling too weak to go home and we will discussed with hospitalist evaluate for admission. Lab Data Attestation: I reviewed the patient's lab results. Labs: Laboratory Results - last 24 hr 07/25/22 07/25/22 07/25/22 14:24 14:24 14:24 WBC 1.5 L RBC 3.87 L Hgb 10.7 L Hct 34.1 L MCV 88.1 MCH 27.6 MCHC 31.4 L RDW Std Deviation 51.5 H RDW Coeff of Kiko 16.4 H Plt Count 240 MPV 10.1 Immature Gran % (Auto) 0.000 Neut % (Auto) 51.3 Lymph % (Auto) 36.8 [place] % (Auto) 5.3 Eos % (Auto) 5.9 H Baso % (Auto) 0.7 Absolute Neuts (auto) 0.8 L Absolute Lymphs (auto) 0.56 L Nucleated RBC % 0 Diff Path Review May foll Platelet Estimate ADEQUATE RBC Morphology NORM C+C Sodium 135 L Potassium 4.1 Chloride 102 Carbon Dioxide 26.0 Anion Gap 7 BUN 24 H Creatinine 0.65 L Estim Creat Clear Calc 112.43 Est GFR (MDRD) Af Amer 161 Est GFR (MDRD) Non-Af 133 BUN/Creatinine Ratio 37.0 H Glucose 120 H Lactic Acid 1.0 Calcium 9.5 Total Bilirubin 0.60 AST 19 ALT 61 Alkaline Phosphatase 206 H Total Protein 6.9 Albumin 2.6 L Globulin 4.3 H Albumin/Globulin Ratio 0.6 L Lipase 208 Radiography Diagnostic Testing: Clinical Impression(s) from Imaging Studies Abdomen/Pelvis CT 07/25/22 13:55 IMPRESSION: Known metastatic colonic carcinoma with interval resection of the transverse colon with right lower quadrant colostomy with interval development development of hepatic metastases and a 4 cm necrotic mass of the body the pancreas worrisome for metastasis with associated pancreatitis and pancreatic pseudocyst formation. Electronically Signed: Satya Serrano MD at 15:37 EDT , Discharge Plan Triage Chief Complaint: Abd Pain ED Provider: Cassi Shell Dx/Rx/DC Orders Clinical Impression: Abdominal pain, Weakness, Pancreatic cancer, Acute pancreatitis Prescriptions: No Action lisinopril-hydrochlorothiazide 20-12.5 mg tablet 1 tablet PO DAILY bisoprolol fumarate 5 mg tablet 5 mg PO DAILY simvastatin 40 mg tablet 40 mg PO DAILY Label Comments: TAKE 1 TABLET BY MOUTH AT BEDTIME potassium chloride 10 mEq tablet extended release 10 meq PO DAILY Label Comments: TAKE 1 TABLET BY MOUTH TWICE A DAY aspirin 81 mg tablet,delayed release (DR/EC) 81 mg PO DAILY Primary Care Provider: Edgardo Frankel Referrals: Edgardo Frankel DO [Primary Care Provider] -
--- NOTE | 2022-07-25 13:55 | CT_ITS ---
STUDY: CT ABDOMEN AND PELVIS WITH CONTRAST REASON FOR EXAM: Male, 61 years old. abdominal pain RADIATION DOSAGE (If Supplied By Facility): CTDIvol = ( 7.75 ) mGy, DLP = ( 265.72 ) mGycm TECHNIQUE: Transaxial images were obtained from the dome of the diaphragm to the symphysis pubis without oral contrast. IV 75mL Isovue-370 was administered. Sagittal and coronal images were reconstructed. Individualized dose optimization techniques were used for this CT. COMPARISON: 12/28/2021 FINDINGS: The visualized lung bases are unremarkable. The visualized portions of the heart are within normal limits. Multiple small peripherally enhancing lesions throughout the liver consistent with metastatic disease. The largest measures 2 cm in the subcapsular posterior segment the right lobe. Normal gallbladder and extrahepatic biliary system. Normal spleen. 2.5 x 4.0 cm necrotic mass of the body the pancreas worrisome for metastasis or pancreatic carcinoma. Associated dilatation of the pancreatic duct within the tail of the pancreas. 2.5 cm round fluid collection of the posterior aspect of the tail and a 1.5 cm fluid collection of the tip of the tail consistent with pancreatic pseudocysts. Enlargement of the tail of pancreas with stranding of surrounding fat consistent with pancreatitis. Normal bilateral adrenal glands. Normal right kidney. 2 cm cyst in the midsection of the left kidney. Normal visualized stomach. Normal small intestine. Interval resection of the transverse colon and splenic flexure with a right lower quadrant colostomy. There is non-visualization of the appendix. Several small lymph nodes within the small bowel mesentery consistent with metastatic lymphadenopathy. Occluded at the infrarenal abdominal aorta with reconstitution of the iliac arteries. Normal inferior vena cava. Normal retroperitoneum. Normal urinary bladder. Small amount of free fluid in the pelvis. Normal abdominal wall. Normal osseous structures. CT/Abdomen/Pelvis W IV Cont ONLY IMPRESSION: Known metastatic colonic carcinoma with interval resection of the transverse colon with right lower quadrant colostomy with interval development development of hepatic metastases and a 4 cm necrotic mass of the body the pancreas worrisome for metastasis with associated pancreatitis and pancreatic pseudocyst formation. Electronically Signed: Satya Serrano MD at 15:37 EDT ,
[2022-07-25] MEDS: 0.9% Normal Saline 1,000 ML 125 ML IV (14:21)
[2022-07-25 14:34] LABS: Absolute Lymphocyte Count 0.56 X10^3/uL (0.83-4.51); Absolute Neutrophil Count 0.8 X10^3/uL (2.0-7.7); Basophil# 0.01 X10^3/uL; Basophil% 0.7 % (0-1); Eosinophil# 0.09 X10^3/uL; Eosinophils% 5.9 % (0-5); Hematocrit 34.1 % (40-54); Hemoglobin 10.7 g/dL (13.0-16.5); Lymphocyte # 0.56 X10^3/ul (0.83-4.51); Lymphocyte % 36.8 % (19-41); Mean Corp Hgb Conc 31.4 g/dL (32-36); Mean Corpuscular Hgb 27.6 pg (27.0-32.0); Mean Corpuscular Volume 88.1 fL (80-94); Mean Platelet Vol. 10.1 fl (6.2-12.0); Monocyte# 0.08 X10^3/uL; Monocyte% 5.3 % (0-10); NRBC Flagged by Analyzer 0 % (0-5); Neutrophil # 0.78 X10^3/uL (2.7-7.7); Neutrophil % 51.3 % (47-70); POSITIVE DIFFERENTIAL YES; POSITIVE MORPHOLOGY YES; Platelet Count 240 K/mm3 (150-450); RBC Distribution Width CV 16.4 % (11.6-14.6); RBC Distribution Width SD 51.5 fl (35.1-43.9); Red Blood Count 3.87 M/mm3 (4.6-6.2)
[2022-07-25 14:47] LABS: ALB/GLOB Ratio 0.6 RATIO (0.9-2.4); AST(SGOT) 19 U/L (15-37); Alanine Aminotransfer ALT/SGPT 61 U/L (16-61); Albumin, Serum 2.6 g/dL (3.2-5.0); Alkaline Phosphatase 206 U/L (45-117); Anion Gap 7 (5-15); BUN 24 mg/dL (7-18); Calcium,Total 9.5 mg/dL (8.5-10.1); Chloride 102 mmol/L (98-107); Creatinine, Serum 0.65 mg/dL (0.70-1.30); EST Glomerular Filtration Rate 133 mL/min (>60); Est Glom Filt Rate - Afr Amer 161 mL/min (>60); Estimated Creatinine Clearance 112.43 ml/min; Globulin 4.3 g/dL (2.2-4.2); Glucose 120 mg/dL (74-106); Lipase 208 U/L (73-393); Potassium 4.1 mmol/L (3.5-5.1); Protein, Total 6.9 g/dL (6.4-8.2); Sodium Level 135 mmol/L (136-145)
[2022-07-25 14:51] LABS: Differential Indicated SCAN CRITERIA MET
[2022-07-25 14:53] LABS: White Blood Count 1.5 K/mm3 (4.4-11.0)
[2022-07-25 15:15] VITALS: BP 139/81; PULSE 85; RESP 16; TEMP 36.8; O2SAT 99
[2022-07-25 15:21] LABS: Platelet Estimate ADEQUATE (ADEQ)
[2022-07-25 15:22] LABS: Red Cell Morphology NORM C+C NORMAL (NORM C&C)
[2022-07-25] MEDS: Ondansetron 4 MG/2 ML Vial IV (15:59)
[2022-07-25] MEDS: HYDROmorphone 1 MG/ML Syringe IV ×3 (15:59→21:20)
--- NOTE | 2022-07-25 16:05 | HP.PCM.HOS_ITS ---
HPI - General General Date of Admission: 07/25/22 Date of Service: 07/25/22 Chief Complaint: Abdominal pain, nausea HPI Narrative The patient is a 61 y/o M w/ PMHx: HTN, HLD, PAD, Hx Ischemic colitis s/p colectomy, Stage IV Pancreatic Cancer with metastatic disease of unclear specific type following w/ Dr. Jimenez who presents to the [facility] ED on 07/25/22 with ongoing R inferior stomal abdominal pain described as sharp and dull aching constant, worse 10/10 with palpation, baseline 4-5/10, decreased oral intake, nausea without emesis, no fever or chills x 3 days with last chemotherapy 5 days prior (2nd chemotherapy course) to current presentation with additionally increased weakness, malaise and fatigue prompting ED evaluation per his onc ologist recommendation. The patient from review of history with Oncology had initial intervention 01/01/22 total colectomy with end ileostomy with unfortunately repeat intervention needs 02/2022 secondary to onset of E. coli bacteremia with a pancreatic leak and collections noted to be culture positive for Bacteroides infection with IR drain placement and treatment with Zosyn for 3 weeks with unfortunately recurrent cysts with aspiration 04/2022 noted to be nondiagnostic at that time with significant 45 pound weight loss at least since November and ongoing chronic abdominal pain. Most recent CT imaging at the [facility] included 07/05/2022 imaging w/ CT pancreas with hypodense mass distal body-tail pancreas (neoplasm), dense lesions liver, LUQ loculated fluid collection near the spleen (3.8 x 4.8 cm), (4 x 2.8 cm) fluid collection posterior tail pancreas. Work-up in the ED included vital signs T98.2, heart rate 85, BP 139/81, respiratory rate 16, 99% on room air, CBC with WC 1.5, hem oglobin 10.7, platelet 240, ANC 0.8 with concurrent lymphopenia, CMP with sodium 135, BUN/creat 24/0.65, glucose 120, lactic acid 1.0, alk phos 206, lipase [address] abdomen and pelvis with known metastatic colonic carcinoma with interval resection of the transverse colon with right lower quadrant colostomy with interval development of hepatic metastases and a 4 cm necrotic mass of the body of the pancreas worrisome for metastasis with associated pancreatitis and pancreatic pseudocyst formation. In the ED patient ministered Zofran, Dilaudid and normal saline. PFSH Medical History High cholesterol HTN (hypertension) PAD (peripheral artery disease) Primary malignant neoplasm of pancreas with metastasis to other site Tobacco use Home Medications potassium chloride 10 mEq tablet,extended release 10 meq PO DAILY supplement 12/28/21 [History Last Taken 12/27/21] enoxaparin 60 mg/0.6 mL subcutaneous syringe 60 mg subcut BID blood thinner 07/25/22 [History Last Taken Unknown] morphine 30 mg tablet,extended release 30 mg PO BID pain 07/25/22 [History Last Taken Unknown] omeprazole 20 mg capsule,delayed release 20 mg PO DAILY gerd 07/25/22 [History Last Taken Unknown] oxycodone 5 mg tablet 5 mg PO Q4H PRN PRN Pain 07/25/22 [History Last Taken Unknown] simvastatin 40 mg tablet 40 mg PO QHS cholestrol 07/25/22 [History Last Taken Unknown] Allergy/AdvReac Type Severity Reaction Status Date / Time No Known Allergies Allergy Verified 07/25/22 12:55 Family History (Updated 07/25/22 @ 16:[address] Aurea La MD) Mother Pancreatic cancer Father Prostate cancer Surgical History (Updated 07/25/22 @ 16:[address] Aurea La MD) H/O ileostomy History of colectomy S/P peripheral artery angioplasty with stent placement Social History (Updated 07/25/22 @ 16:[address] Aurea La MD) household members: spouse Smoking Status: Light Smoker (<10/day) how long ago did patient quit smoking: Prior 1-1.5 ppd (16/pack) cigars since teen, quit intermittently, now 4-5. alcohol intake: former details: Sober since 12/2021, prior had drank 1 pint whiskey/bourbon daily. substance use type: does not use ROS ROS Narrative Admission Review of Systems: CONSTITUTIONAL: No weight loss, fever, chills, + weakness or fatigue. HEENT: Eyes: No visual loss, blurred vision, double vision or yellow sclerae. Ears, Nose, Throat: No hearing loss, sneezing, congestion, runny nose or sore throat. SKIN: No rash or itching, lesions, wounds. CARDIOVASCULAR: No chest pain, chest pressure or chest discomfort, palpitations, edema, orthopnea, syncopal events. RESPIRATORY: No shortness of breath, cough or sputum, wheezing, hemoptysis. GASTROINTESTINAL: + anorexia, nausea, abdominal pain, No vomiting, melena, BRBPR. Ostomy output unchanged/similar. GENITOURINARY: No dysuria, frequency, urgency or retention. NEUROLOGICAL: No headache, dizziness, syncope, paralysis, ataxia, numbness or tingling in the extremities, focal weakness, change in bowel or bladder control, seizure. MUSCULOSKELETAL: + muscle, back pain, joint pain or stiffness. HEMATOLOGIC: + anemia, bleeding or bruising. LYMPHATICS: + enlarged nodes. No history of splenectomy. PSYCHIATRIC: No history of depression or anxiety. ENDOCRINOLOGIC: No reports of sweating, cold or heat intolerance. No polyuria or polydipsia. ALLERGIES: No history of asthma, hives, eczema or rhinitis. Vital Signs Vital Signs Vital Signs: 07/25/22 12:51 07/25/22 15:15 Temperature 98.9 F 98.2 F Temperature Source Temporal Oral Pulse Rate 108 H 85 Respiratory Rate 16 16 Blood Pressure 128/88 H 139/81 H Blood Pressure Mean 101 100 Pulse Ox 100 99 Oxygen Delivery Method Room Air Weight Weight: 145 lb Body Mass Index (BMI) 22.0 Physical Exam Narrative Physical Examination: General: Awake, alert, oriented x 3 and cooperative, seated upright in ED bed, fatigued and uncomfortable appearing Skin: Normal color, decreased turgor, no icterus, no cyanosis. HEENT: AT/NC, EOMI, PERRLA, dry MM, no carotid bruits or JVD noted. Lungs: Diminished, greater bases, appropriate effort, no rales, ronchi or wheezing. Heart: Regular rate and rhythm; no gallop, rub audible, right upper chest port in place. Abdomen: Soft, cachectic, discomfort to palpation of bilateral upper quadrants and the epigastric region and superior to the ileostomy with appropriate output in the ostomy and flatus, no obvious distention, voluntary guarding, mildly hyperactive bowel sounds, difficult assess HSM given pain. Extremities: No cyanosis, clubbing, or edema. Neurological: Patient awake, alert, oriented as noted cognitive function intact; pupils equally reactive to light and accommodation, cranial nerves II-XII grossly normal, moving all 4 extremities, no focal deficits, strength moderately to severely global decrease secondary to acute presentation Psychiatric: Affect appears fatigued, uncomfortable, no acute evidence of depressive or anxiety feelings. Results Lab / Micro Data Result Diagrams: 07/25/22 14:24 07/25/22 14:24 Labs: Laboratory Results - last 24 hr 07/25/22 14:24: WBC 1.5 L, RBC 3.87 L, Hgb 10.7 L, Hct 34.1 L, MCV 88.1, MCH 27.6, MCHC 31.4 L, RDW Std Deviation 51.5 H, RDW Coeff of Kiko 16.4 H, Plt Count 240, MPV 10.1, Immature Gran % (Auto) 0.000, Neut % (Auto) 51.3, Lymph % (Auto) 36.8, Burke % (Auto) 5.3, Eos % (Auto) 5.9 H, Baso % (Auto) 0.7, Absolute Neuts (auto) 0.8 L, Absolute Lymphs (auto) 0.56 L, Nucleated RBC % 0, Diff Path Review March, Platelet Estimate ADEQUATE, RBC Morphology NORM C+C 07/25/22 14:24: Sodium 135 L, Potassium 4.1, Chloride 102, Carbon Dioxide 26.0, Anion Gap 7, BUN 24 H, Creatinine 0.65 L, Estim Creat Clear Calc 112.43, Est GFR (MDRD) Af Amer 161, Est GFR (MDRD) Non-Af 133, BUN/Creatinine Ratio 37.0 H, Glucose 120 H, Calcium 9.5, Total Bilirubin 0.60, AST 19, ALT 61, Alkaline Phosphatase 206 H, Total Protein 6.9, Albumin 2.6 L, Globulin 4.3 H, Albumin/Globulin Ratio 0.6 L, Lipase 208 07/25/22 14:24: Lactic Acid 1.0 Radiology Impression Abdomen/Pelvis CT 07/25/22 13:55 IMPRESSION: Known metastatic colonic carcinoma with interval resection of the transverse colon with right lower quadrant colostomy with interval development development of hepatic metastases and a 4 cm necrotic mass of the body the pancreas worrisome for metastasis with associated pancreatitis and pancreatic pseudocyst formation. Electronically Signed: Satya Serrano MD at 15:37 EDT , Assessment & Plan Assessment/Plan (1) Acute pancreatitis: (2) PAD (peripheral artery disease): PLAN: Plan The patient is a 61 y/o M w/ PMHx: HTN, HLD, PAD, Hx Ischemic colitis s/p colectomy, Stage IV Pancreatic Cancer with metastatic disease of unclear specific type following w/ Dr. Jimenez who presents to the [facility] ED on 07/25/22 with ongoing R inferior stomal abdominal pain described as sharp and dull aching constant, worse 10/10 with palpation, baseline 4-5/10, decreased oral intake, nausea without emesis, no fever or chills x 3 days with last chemotherapy 5 days prior (2nd chemotherapy course) to current presentation with additionally incre ased weakness, malaise and fatigue prompting ED evaluation per his oncologist recommendation. #1. Acute on Chronic Abdominal Pain, decreased intake, nausea without emesis, multifactorial, secondary to Metastatic Pancreatic Cancer, Acute Pancreatitis: Will admit to MS, maintain on IVFs, NPO, PPI, IV/po pain control, trend lipase although normal level upon presentation however imaging with significant stranding consistent with acute pancreatitis on imaging, CMP, PRN antiemetics, PRN pain regimen. #2. Stage IV Pancreatic Cancer with metastatic disease (liver, lymph nodes) w/ Neutropenic, Lymphopenia, Chronic anemia: Ongoing chemotherapy, most recently 5 days prior, 2nd course, following w/ Dr. Jimenez, will obtain mag and phos levels and replete if needed. Did discuss patient case with Dr. Jimenez who see in the a.m. as an on formal evaluation with no formal consultation placed. #3. Hypertension: Continue home regimen including lisinopril, bisoprolol, holding HCTZ, PRN hydralazine. #4. Hyperlipidemia: Continue home statin regimen. #5. Tobacco Abuse: Encouraged cessation, inpatient consultation per RT, NR if desired. #6. History of ischemic colitis: Status post subtotal colectomy with end ileostomy 01/01/2022. #7. PAD: Patient with history of peripheral arterial stenosis requiring stenting to the right lower extremity, unclear specific region, continue splint, hypertensive regimen with adjustments as noted. #8. Severe protein calorie malnutrition: Evidenced by significant weight loss, poor oral intake, nutrition consulted for recommendations. #9. DVT Prophylaxis: SCDs, lovenox. #10. CODE status: Patient VAUGHN is his who is and living will is currently in place. Discussed CODE status at length including difference between FULL code, DNR-CCA and DNR-CC status. Following discussions about the differences in these status, requested Full Code status. Advanced Care Planning Face to Face Time: 16 minutes. Charges/Coding Visit Charges Inpatient E&M: 10506 Init Hosp L3 Procedures Hospitalists Procedures: 74813 Advncd Care Plan 30 Min
[2022-07-25 16:28] VITALS: BP 141/71; PULSE 88; RESP 16; TEMP 36.6; O2SAT 98
--- NOTE | 2022-07-25 16:42 | NURSING ---
MED SURG WHITE ABD PAIN, PANCREATITIS, PANCREATIC CANCER
[2022-07-25 16:55] LABS: Magnesium 1.8 mg/dL (1.6-2.6); Phosphorus 2.4 mg/dL (2.5-4.9)
[2022-07-25 17:07] VITALS: BMI 15.6
[2022-07-25] MEDS: 0.9% Saline Lock 10 ML Syringe IV (18:17)
[2022-07-25] MEDS: 0.9% Normal Saline 1,000 ML 150 ML IV (18:17)
[2022-07-25 19:51] VITALS: BP 131/66; PULSE 75; RESP 16; TEMP 37; O2SAT 100
--- NOTE | 2022-07-25 21:15 | CPS ---
Patient refused IS at this time. He states that he does not need it even after being educated on how it could be beneficial to him.
[2022-07-25] MEDS: Atorvastatin Calcium 20 MG Tablet PO (21:16)
[2022-07-25] MEDS: morphine SR 15 MG Tablet 30 MG PO (22:00)
[2022-07-25] MEDS: Enoxaparin 60 MG/0.6 ML Syringe SC (22:00)
[2022-07-26] MEDS: 0.9% Normal Saline 1,000 ML 150 ML IV ×4 (00:13→21:12)
[2022-07-26] MEDS: HYDROmorphone 1 MG/ML Syringe IV ×3 (00:22→10:13)
[2022-07-26 01:55] VITALS: BP 121/63; PULSE 71; RESP 18; TEMP 36.9; O2SAT 100
[2022-07-26 06:03] LABS: Absolute Lymphocyte Count 0.73 X10^3/uL (0.83-4.51); Absolute Neutrophil Count 1.1 X10^3/uL (2.0-7.7); Basophil# 0.01 X10^3/uL; Basophil% 0.5 % (0-1); Eosinophil# 0.12 X10^3/uL; Eosinophils% 5.8 % (0-5); Hematocrit 29.7 % (40-54); Hemoglobin 9.1 g/dL (13.0-16.5); Lymphocyte # 0.73 X10^3/ul (0.83-4.51); Lymphocyte % 35.3 % (19-41); Mean Corp Hgb Conc 30.6 g/dL (32-36); Mean Corpuscular Hgb 27.2 pg (27.0-32.0); Mean Corpuscular Volume 88.9 fL (80-94); Monocyte# 0.09 X10^3/uL; Monocyte% 4.3 % (0-10); NRBC Flagged by Analyzer 0 % (0-5); Neutrophil # 1.12 X10^3/uL (2.7-7.7); Neutrophil % 54.1 % (47-70); Platelet Count 166 K/mm3 (150-450); RBC Distribution Width CV 16.1 % (11.6-14.6); RBC Distribution Width SD 52.2 fl (35.1-43.9); Red Blood Count 3.34 M/mm3 (4.6-6.2); White Blood Count 2.1 K/mm3 (4.4-11.0)
[2022-07-26 06:14] LABS: ALB/GLOB Ratio 0.6 RATIO (0.9-2.4); AST(SGOT) 26 U/L (15-37); Alanine Aminotransfer ALT/SGPT 45 U/L (16-61); Albumin, Serum 2.1 g/dL (3.2-5.0); Alkaline Phosphatase 162 U/L (45-117); Anion Gap 6 (5-15); BUN 16 mg/dL (7-18); BUN/Creat Ratio 41.6 RATIO (10-20); Calcium,Total 8.1 mg/dL (8.5-10.1); Chloride 107 mmol/L (98-107); Creatinine, Serum 0.38 mg/dL (0.70-1.30); EST Glomerular Filtration Rate 243 mL/min (>60); Est Glom Filt Rate - Afr Amer 294 mL/min (>60); Estimated Creatinine Clearance 140.06 ml/min; Globulin 3.5 g/dL (2.2-4.2); Glucose 71 mg/dL (74-106); Lipase 187 U/L (73-393); Potassium 3.7 mmol/L (3.5-5.1); Protein, Total 5.6 g/dL (6.4-8.2); Sodium Level 137 mmol/L (136-145)
[2022-07-26 07:55] VITALS: BP 121/74; PULSE 68; RESP 18; TEMP 36.8; O2SAT 98
--- NOTE | 2022-07-26 08:53 | PN.HOSP_ITS ---
Subjective Subjective Abdominal persistent, but intensity waxes and wanes Objective Data Objective Data Vital Signs: Vital Signs Temp Pulse Resp BP Pulse Ox O2 Del Method 36.9 C 71 18 121/63 H 100 Room Air 07/26/22 01:55 07/26/22 01:55 07/26/22 01:55 07/26/22 01:55 07/26/22 01:55 07/26/22 01:55 Oxygen Delivery Method Room Air Weight: 47.9 kg Body Mass Index (BMI) 15.6 Intake & Output: Intake and Output for Last 24 Hours 07/24/22 07/25/22 07/26/22 23:59 23:59 23:59 Intake Total 603.75 / 643.75 1827.5 / 1827.5 Output Total 880 / 880 Balance 603.75 / 263.75 947.5 / 947.5 Lab / Micro Data Result Diagrams: 07/26/22 05:45 07/26/22 05:45 Labs: Laboratory Results - last 24 hr 07/25/22 14:24: WBC 1.5 L, RBC 3.87 L, Hgb 10.7 L, Hct 34.1 L, MCV 88.1, MCH 27.6, MCHC 31.4 L, RDW Std Deviation 51.5 H, RDW Coeff of Kiko 16.4 H, Plt Count 240, MPV 10.1, Immature Gran % (Auto) 0.000, Neut % (Auto) 51.3, Lymph % (Auto) 36.8, [place] % (Auto) 5.3, Eos % (Auto) 5.9 H, Baso % (Auto) 0.7, Absolute Neuts (auto) 0.8 L, Absolute Lymphs (auto) 0.56 L, Nucleated RBC % 0, Diff Path Review May , Platelet Estimate ADEQUATE, RBC Morphology NORM C+C 07/25/22 14:24: Sodium 135 L, Potassium 4.1, Chloride 102, Carbon Dioxide 26.0, Anion Gap 7, BUN 24 H, Creatinine 0.65 L, Estim Creat Clear Calc 112.43, Est GFR (MDRD) Af Amer 161, Est GFR (MDRD) Non-Af 133, BUN/Creatinine Ratio 37.0 H, Glucose 120 H, Calcium 9.5, Total Bilirubin 0.60, AST 19, ALT 61, Alkaline P hosphatase 206 H, Total Protein 6.9, Albumin 2.6 L, Globulin 4.3 H, Albumin/Globulin Ratio 0.6 L, Lipase 208 07/25/22 14:24: Lactic Acid 1.0 07/25/22 14:24: Phosphorus 2.4 L, Magnesium 1.8 07/26/22 05:45: WBC 2.1 L, RBC 3.34 L, Hgb 9.1 L, Hct 29.7 L, MCV 88.9, MCH 27.2, MCHC 30.6 L, RDW Std Deviation 52.2 H, RDW Coeff of Kiko 16.1 H, Plt Count 166, MPV 10.0, Immature Gran % (Auto) 0.000, Neut % (Auto) 54.1, Lymph % (Auto) 35.3, [place] % (Auto) 4.3, Eos % (Auto) 5.8 H, Baso % (Auto) 0.5, Absolute Neuts (auto) 1.1 L, Absolute Lymphs (auto) 0.73 L, Nucleated RBC % 0 07/26/22 05:45: Sodium 137, Potassium 3.7, Chloride 107, Carbon Dioxide 24.0, Anion Gap 6, BUN 16, Creatinine 0.38 L, Estim Creat Clear Calc 140.06, Est GFR (MDRD) Af Amer 294, Est GFR (MDRD) Non-Af 243, BUN/Creatinine Ratio 41.6 H, Glucose 71 L, Calcium 8.1 L, Total Bilirubin 0.50, AST 26, ALT 45, Alkaline Phosphatase 162 H, Total Protein 5.6 L, Albumin 2.1 L, Globulin 3.5, Albumin/Globulin Ratio 0.6 L, Lipase 187 Radiography Diagnostic Testing: Radiology Impression Abdomen/Pelvis CT 07/25/22 13:55 IMPRESSION: Known metastatic colonic carcinoma with interval resection of the transverse colon with right lower quadrant colostomy with interval development development of hepatic metastases and a 4 cm necrotic mass of the body the pancreas worrisome for metastasis with associated pancreatitis and pancreatic pseudocyst formation. Electronically Signed: Satya Serrano MD at 15:37 EDT , Physical Exam Const alert and no apparent distress Resp normal respiratory effort, no retractions, no use of accessory muscles and clear to auscultation bilaterally Cardio regular rate, regular rhythm, S1 normal heart sound and S2 normal heart sound GI GI Narrative: colostomy. suprapubic abdominal tenderness. Assessment & Plan Assessment/Plan (1) Abdominal pain: PLAN: Suprapubic Continue MS contin. Add PRN oxycodone. Add dicyclomine Advance diet (2) Acute pancreatitis: PLAN: Noted 4cm necrotic mass in body of pancreas, but not TTP on exam. (3) PAD (peripheral artery disease): PLAN: pt would like to hold on ASA while on enoxaparin. Informed him that it is unlikely it would initiate bleeding, but informed him that he (4) Primary malignant neoplasm of pancreas with metastasis to other site: PLAN: Stage IV Pancreatic Cancer with metastatic disease (liver, lymph nodes) w/ Neutropenic, Lymphopenia, Chronic anemia: Ongoing chemotherapy, most recently 5 days prior, 2nd course, following w/ Dr. Jimenez, will obtain mag and phos levels and replete if needed. Did discuss patient case with Dr. Jimenez who see in the a.m. as an on formal evaluation with no formal consultation placed DW Dr. Jimenez PLAN: Plan Chronic conditions: * Hypertension: Continue home regimen including lisinopril, bisoprolol, holding HCTZ, PRN hydralazine. * Hyperlipidemia: Continue home statin regimen. * Tobacco Abuse: Encouraged cessation, inpatient consultation per RT, NR if desired. * History of ischemic colitis: Status post subtotal colectomy with end ileostomy 01/01/2022. * PAD: Patient with history of peripheral arterial stenosis requiring stenting to the right lower extremity, unclear specific region, continue splint, hypertensive regimen with adjustments as noted. * Severe protein calorie malnutrition: Evidenced by significant weight loss, poor oral intake, nutrition consulted for recommendations. DVT Prophylaxis: SCDs, lovenox. CODE status: Patient VAUGHN is his who is and living will is currently in place. Discussed CODE status at length including difference between FULL code, DNR-CCA and DNR-CC status. Following discussions about the differences in these status, requested Full Code status. DW pt's and father at bedside Charges/Coding Visit Charges Inpatient E&M: 30681 Subs Hosp L2
--- NOTE | 2022-07-26 10:10 | CASEMGMT ---
DARIA COLBERT CARDIOLOGY PHYSICIAN ASSISTANT CM to room to meet with patient for initial transition planning/care coordination assessment. DARIA COLBERT introduced self and role at [facility]. Pt voices understanding and consents to assessment at this time. Pt resting in bed in no distress at this time. Pt is A/O at this time and answers all questions appropriately. Care providers, pharmacy, and demographics verified/updated at this time. PCP: Dr Frankel Specialists: Dr Jimenez-oncology Preferred Pharmacy: [facility] Insurance: [employer] Prescription Benefit: Yes Living Will/HPOA: Has both LW and HPOA, who is his , Joann LNOK: , Joann Living Arrangements: Lives w/ in one-story home w/basement. 3 steps to enter. Pt has been having increased weakness over the past week. He has been able to bath/dress himself, but is assisting w/home mgmt tasks and helping pt as needed. Pt manages his own colostomy. Transportation: Pt and DME: States has the following DME: cane and walker that he uses on occasion. Pt is not sure what co he gets the colostomy supplies from, but states he has all needed supplies at this time. Pt states no need for further DME at this time. HHC/SNF: Hx [facility] in the past. No hx of HHC. Discussed discharge planning and HHC. Pt wishes to return home with his . Pt states he does not think he will need HHC, but he is not sure, as he has not been OOB yet. Pt aware PT/OT will be working w/him. Pt made aware to ask for CM if he decides he would like HHC. Pt also made aware, if he does not want HHC set up while @ [facility], if he changes his mind once he returns home, to discuss HHC w/his PCP. He voices understanding. CM to follow for any discharge planning/needs. Pt voices no further concerns/needs at this time. Advised pt to ask for CM if any further questions/concerns/needs arise. Voices understanding. PLAN: Home w/. CM to follow for possible HHC. PT/OT evals pending. Román WOODALL RN, CM
[2022-07-26] MEDS: Potassium Chloride Oral Tablet 10 MEQ PO (10:12)
[2022-07-26] MEDS: morphine SR 15 MG Tablet 30 MG PO ×2 (10:17→21:10)
[2022-07-26] MEDS: Lisinopril 10 MG Tablet PO (10:17)
[2022-07-26] MEDS: Enoxaparin 60 MG/0.6 ML Syringe SC ×2 (12:29→21:11)
[2022-07-26] MEDS: Bisoprolol Fumarate 5 MG Tablet PO (13:24)
[2022-07-26 13:47] LABS: Pathologist Review Reviewed
[2022-07-26 14:00] VITALS: BP 105/62; PULSE 64; RESP 18; TEMP 37.2; O2SAT 99
--- NOTE | 2022-07-26 15:00 | CASEMGMT ---
Social Work SW attempted to meet with pt to provide diagnosis related support. Pt stating he is not feeling well at this time and not up to talking. SW will followup as time allows. BOLIVAR Patel
[2022-07-26] MEDS: oxyCODONE 5 MG Tablet 10 MG PO (16:36)
[2022-07-26 20:00] VITALS: BP 114/62; PULSE 65; RESP 14; TEMP 36.6; O2SAT 100
[2022-07-26] MEDS: Atorvastatin Calcium 20 MG Tablet PO (21:09)
[2022-07-27 02:00] VITALS: BP 107/62; PULSE 63; RESP 14; TEMP 36.6; O2SAT 98
[2022-07-27] MEDS: oxyCODONE 5 MG Tablet 10 MG PO ×2 (02:35→06:43)
[2022-07-27] MEDS: 0.9% Normal Saline 1,000 ML 150 ML IV ×3 (04:20→16:42)
[2022-07-27 06:30] LABS: Absolute Lymphocyte Count 0.79 X10^3/uL (0.83-4.51); Absolute Neutrophil Count 1.6 X10^3/uL (2.0-7.7); Basophil# 0.01 X10^3/uL; Basophil% 0.4 % (0-1); Eosinophil# 0.03 X10^3/uL; Eosinophils% 1.2 % (0-5); Hematocrit 27.8 % (40-54); Hemoglobin 8.7 g/dL (13.0-16.5); Lymphocyte # 0.79 X10^3/ul (0.83-4.51); Lymphocyte % 30.9 % (19-41); Mean Corp Hgb Conc 31.3 g/dL (32-36); Mean Corpuscular Hgb 27.8 pg (27.0-32.0); Mean Corpuscular Volume 88.8 fL (80-94); Mean Platelet Vol. 10.1 fl (6.2-12.0); Monocyte# 0.14 X10^3/uL; Monocyte% 5.5 % (0-10); NRBC Flagged by Analyzer 0 % (0-5); Neutrophil # 1.58 X10^3/uL (2.7-7.7); Neutrophil % 61.6 % (47-70); Platelet Count 120 K/mm3 (150-450); RBC Distribution Width CV 15.9 % (11.6-14.6); RBC Distribution Width SD 50.8 fl (35.1-43.9); Red Blood Count 3.13 M/mm3 (4.6-6.2); White Blood Count 2.6 K/mm3 (4.4-11.0)
[2022-07-27 06:52] LABS: Anion Gap 5 (5-15); BUN 8 mg/dL (7-18); BUN/Creat Ratio 22.8 RATIO (10-20); Calcium,Total 7.9 mg/dL (8.5-10.1); Chloride 112 mmol/L (98-107); Creatinine, Serum 0.35 mg/dL (0.70-1.30); EST Glomerular Filtration Rate 270 mL/min (>60); Est Glom Filt Rate - Afr Amer 327 mL/min (>60); Estimated Creatinine Clearance 158.73 ml/min; Glucose 81 mg/dL (74-106); Sodium Level 140 mmol/L (136-145)
--- NOTE | 2022-07-27 07:17 | PN.HOSP_ITS ---
Subjective Subjective Still with abdominal pain. No change in quality. Not worse with eating, but has not eaten much. Objective Data Objective Data Vital Signs: Vital Signs Temp Pulse Resp BP Pulse Ox O2 Del Method 36.6 C 63 14 107/62 98 Room Air 07/27/22 02:00 07/27/22 02:00 07/27/22 02:00 07/27/22 02:00 07/27/22 02:00 07/27/22 02:00 Oxygen Delivery Method Room Air Weight: 50 kg Body Mass Index (BMI) 15.6 Intake & Output: Intake and Output for Last 24 Hours 07/25/22 07/26/22 07/27/22 23:59 23:59 23:59 Intake Total 603.75 / 643.75 4177.5 / 4177.5 1000 / 1000 Output Total 1355 / 2005 1100 / 1100 Balance 603.75 / 263.75 2822.5 / 2172.5 -100 / -100 Medical Nutrition Assessment Dietitian: Malnutrition Criteria Met Start: 07/26/22 12:13 Freq: Status: Active Protocol: Document 07/26/22 12:13 SLA (Rec: 07/26/22 12:13 SLA [id number]) Nutrition Malnutrition Evidence of Malnutrition Exists Yes Malnutrition (severe): Chronic Evidenced By Suboptimal Energy Intake ( Severe),Weight Loss (Severe), Physical Changes (Severe) Clinical Problem Chronic Disease or Condition Related Malnutrition Etiology related to pancreatic cancer making it difficult for pt to consume adequate nutrition to meet est nutritional needs Signs/Symptoms as evidenced by 38.1% wt loss x 9 months and meeting <50-75% of est nutritional needs. Pt noted to have fat/muscle loss in face (temporal, buccal, orbitals), upper body ( clavicle, acromion, arms) Status Active Problem Recommendation Dietitian Recommendations/Changes As medically able, rec diet as tolerated to Transitional diet w/ goal for liberal regular diet d/t signs and symptoms of malnutrition. Will readdress provision of oral nutrition supplement w/ pt when able to resume po diet . Rec nutrition support if NPO anticipated >3 days and if in accordance w/ pt/family wishes Monitor for signs of refeeding syndrome when po diet resumes . Lab / Micro Data Result Diagrams: 07/27/22 06:20 07/27/22 06:20 Labs: Laboratory Results - last 24 hr 07/25/22 14:24: Diff Path Review Reviewed 07/27/22 06:20: WBC 2.6 L, RBC 3.13 L, Hgb 8.7 L, Hct 27.8 L, MCV 88.8, MCH 27.8, MCHC 31.3 L, RDW Std Deviation 50.8 H, RDW Coeff of Kiko 15.9 H, Plt Count 120 L, MPV 10.1, Immature Gran % (Auto) 0.400, Neut % (Auto) 61.6, Lymph % (Auto) 30.9, Leake % (Auto) 5.5, Eos % (Auto) 1.2, Baso % (Auto) 0.4, Absolute Neuts (auto) 1.6 L, Absolute Lymphs (auto) 0.79 L, Nucleated RBC % 0 07/27/22 06:20: Sodium 140, Potassium 3.0 L, Chloride 112 H, Carbon Dioxide 23.0, Anion Gap 5, BUN 8, Creatinine 0.35 L, Estim Creat Clear Calc 158.73, Est GFR (MDRD) Af Amer 327, Est GFR (MDRD) Non-Af 270, BUN/Creatinine Ratio 22.8 H, Glucose 81, Calcium 7.9 L Physical Exam Const alert and no apparent distress Resp normal respiratory effort, no retractions, no use of accessory muscles and clear to auscultation bilaterally Cardio regular rate, regular rhythm, S1 normal heart sound and S2 normal heart sound GI GI Narrative: ostomy in LLQ. TTP suprapubic. Assessment & Plan Assessment/Plan (1) Abdominal pain: PLAN: Suprapubic Ongoing Continue MS contin. Change PRN oxycodone to PRN hydromorphone. Continue dicyclomine Encouraged patient to eat Discussed purpose of palliation. (2) Acute pancreatitis: PLAN: Noted 4cm necrotic mass in body of pancreas, but not TTP on exam. (3) PAD (peripheral artery disease): PLAN: pt would like to hold on ASA while on enoxaparin. Informed him that it is unlikely it would initiate bleeding, but informed him that he (4) Primary malignant neoplasm of pancreas with metastasis to other site: PLAN: Stage IV Pancreatic Cancer with metastatic disease (liver, lymph nodes) w/ Neutropenic, Lymphopenia, Chronic anemia: Ongoing chemotherapy, most recently 5 days prior, 2nd course, following w/ Dr. Jimenez, will obtain mag and phos levels and replete if needed. Did discuss patient case with Dr. Jimenez who see in the a.m. as an on formal evaluation with no formal consultation placed DW Dr. Jimenez PLAN: Plan Chronic conditions: * Hypertension: Continue home regimen including lisinopril, bisoprolol, holding HCTZ, PRN hydralazine. * Hyperlipidemia: Continue home statin regimen. * Tobacco Abuse: Encouraged cessation, inpatient consultation per RT, NR if desired. * History of ischemic colitis: Status post subtotal colectomy with end ileostomy 01/01/2022. * PAD: Patient with history of peripheral arterial stenosis requiring stenting to the right lower extremity, unclear specific region, continue splint, hypertensive regimen with adjustments as noted. * Severe protein calorie malnutrition: Evidenced by significant weight loss, poor oral intake, nutrition consulted for recommendations. DVT Prophylaxis: SCDs, lovenox. CODE status: Patient VAUGHN is his who is and living will is currently in place. Discussed CODE status at length including difference between FULL code, DNR-CCA and DNR-CC status. Following discussions about the differences in these status, requested Full Code status. Charges/Coding Visit Charges Inpatient E&M: 07187 Subs Hosp L2
[2022-07-27 08:00] VITALS: BP 107/62; PULSE 59; RESP 16; TEMP 36.6; O2SAT 100
[2022-07-27] MEDS: Potassium Chloride Oral Tablet 10 MEQ PO (08:13)
[2022-07-27] MEDS: Enoxaparin 60 MG/0.6 ML Syringe SC ×2 (08:13→21:56)
[2022-07-27] MEDS: morphine SR 15 MG Tablet 30 MG PO ×2 (10:49→21:45)
[2022-07-27 15:15] VITALS: BP 112/63; PULSE 58; RESP 16; TEMP 36.7; O2SAT 100
[2022-07-27] MEDS: HYDROmorphone 1 MG/ML Syringe IV ×2 (15:26→20:30)
[2022-07-27] MEDS: 0.9% Saline Lock 10 ML Syringe IV ×2 (15:26→20:30)
[2022-07-27] MEDS: HYDROmorphone 2 MG TABLET PO (16:41)
[2022-07-27 20:30] VITALS: BP 123/69; PULSE 61; RESP 14; TEMP 37.2; O2SAT 100
[2022-07-27] MEDS: Atorvastatin Calcium 20 MG Tablet PO (21:56)
[2022-07-28] MEDS: 0.9% Normal Saline 1,000 ML 150 ML IV ×2 (00:12→07:01)
[2022-07-28] MEDS: HYDROmorphone 1 MG/ML Syringe IV ×2 (01:06→06:47)
[2022-07-28] MEDS: 0.9% Saline Lock 10 ML Syringe IV ×3 (01:07→11:35)
[2022-07-28 02:35] VITALS: BP 128/63; PULSE 58; RESP 14; TEMP 36.6; O2SAT 100
--- NOTE | 2022-07-28 07:47 | PN.HOSP_ITS ---
Subjective Subjective Abdomen feeling better. Tolerating PO. Diarrhea. Objective Data Objective Data Vital Signs: Vital Signs Temp Pulse Resp BP Pulse Ox O2 Del Method 36.6 C 58 L 14 128/63 H 100 Room Air 07/28/22 02:35 07/28/22 02:35 07/28/22 02:35 07/28/22 02:35 07/28/22 02:35 07/28/22 02:35 Oxygen Delivery Method Room Air Weight: 50 kg Body Mass Index (BMI) 15.6 Intake & Output: Intake and Output for Last 24 Hours 07/26/22 07/27/22 07/28/22 23:59 23:59 23:59 Intake Total 4287.5 / 4287.5 4457.5 / 4457.5 1000 / 1000 Output Total 1355 / 2004 1595 / 2870 1475 / 1475 Balance 2932.5 / 2282.5 2862.5 / 1587.5 -475 / -475 Medical Nutrition Assessment Dietitian: Malnutrition Criteria Met Start: 07/26/22 12:13 Freq: Status: Active Protocol: Document 07/26/22 12:13 SLA (Rec: 07/26/22 12:13 SLA [id number]) Nutrition Malnutrition Evidence of Malnutrition Exists Yes Malnutrition (severe): Chronic Evidenced By Suboptimal Energy Intake ( Severe),Weight Loss (Severe), Physical Changes (Severe) Clinical Problem Chronic Disease or Condition Related Malnutrition Etiology related to pancreatic cancer making it difficult for pt to consume adequate nutrition to meet est nutritional needs Signs/Symptoms as evidenced by 38.1% wt loss x 9 months and meeting <50-75% of est nutritional needs. Pt noted to have fat/muscle loss in face (temporal, buccal, orbitals), upper body ( clavicle, acromion, arms) Status Active Problem Recommendation Dietitian Recommendations/Changes As medically able, rec diet as tolerated to Transitional diet w/ goal for liberal regular diet d/t signs and symptoms of malnutrition. Will readdress provision of oral nutrition supplement w/ pt when able to resume po diet . Rec nutrition support if NPO anticipated >3 days and if in accordance w/ pt/family wishes Monitor for signs of refeeding syndrome when po diet resumes . Lab / Micro Data Result Diagrams: 07/27/22 06:20 07/27/22 06:20 Physical Exam Const alert and no apparent distress Resp normal respiratory effort, no retractions, no use of accessory muscles and clear to auscultation bilaterally Cardio regular rate, regular rhythm, S1 normal heart sound and S2 normal heart sound GI GI Narrative: TTP generalized w guarding. Ostomy in place with dark stool. Stool w liquid consistency. Assessment & Plan Assessment/Plan (1) Abdominal pain: QUALIFIERS: Abdominal location: generalized Qualified Code(s): R10.84 - Generalized abdominal pain PLAN: Suprapubic Ongoing Continue MS contin. Change PRN oxycodone to PRN hydromorphone. Continue dicyclomine Encouraged patient to eat Discussed purpose of palliation. (2) Acute pancreatitis: QUALIFIERS: Pancreatitis type: other Acute pancreatitis complication: uninfected necrosis Qualified Code(s): K85.81 - Other acute pancreatitis with uninfected necrosis PLAN: Noted 4cm necrotic mass in body of pancreas, but not TTP on exam. (3) PAD (peripheral artery disease): PLAN: pt would like to hold on ASA while on enoxaparin. Informed him that it is unlikely it would initiate bleeding, but informed him that he (4) Primary malignant neoplasm of pancreas with metastasis to other site: PLAN: Stage IV Pancreatic Cancer with metastatic disease (liver, lymph nodes) w/ Neutropenic, Lymphopenia, Chronic anemia: Ongoing chemotherapy, most recently 5 days prior, 2nd course, following w/ Dr. Jimenez, will obtain mag and phos levels and replete if needed. Did discuss patient case with Dr. Jimenez who see in the a.m. as an on formal evaluation with no formal consultation placed DW Dr. Jimenez PLAN: Plan Chronic conditions: * Hypertension: Continue home regimen including lisinopril, bisoprolol, holding HCTZ, PRN hydralazine. * Hyperlipidemia: Continue home statin regimen. * Tobacco Abuse: Encouraged cessation, inpatient consultation per RT, NR if desired. * History of ischemic colitis: Status post subtotal colectomy with end ileostomy 01/01/2022. * PAD: Patient with history of peripheral arterial stenosis requiring stenting to the right lower extremity, unclear specific region, continue splint, hypertensive regimen with adjustments as noted. * Severe protein calorie malnutrition: Evidenced by significant weight loss, poor oral intake, nutrition consulted for recommendations. DVT Prophylaxis: SCDs, lovenox. CODE status: Patient HCPARA is his who is and living will is currently in place. Discussed CODE status at length including difference between FULL code, DNR-CCA and DNR-CC status. Following discussions about the differences in these status, requested Full Code status. DC home.
[2022-07-28 08:23] VITALS: BP 127/70; PULSE 61; RESP 18; TEMP 36.6; O2SAT 99
[2022-07-28] MEDS: Potassium Chloride Oral Tablet 10 MEQ PO (08:36)
[2022-07-28] MEDS: Enoxaparin 60 MG/0.6 ML Syringe SC (08:36)
--- NOTE | 2022-07-28 09:18 | DCINST_ITS ---
Discharge Instructions Diet Discharge Diet: No restrictions and Light diet - advance as tolerated Activity Discharge Activity: Return to Normal Activity Dressing / Incision Call your doctor if you observe: - (worsening abdominal pain. ) Follow Up Care Test Results: Test results from this visit will be discussed in further detail at your follow- up appointment, if applicable. Discharge Plan Admission Admit Date/Time: 07/25/22 16:18 Primary Reason for Your Visit: abdominal pain. Attending Provider: Abel Santana Primary Care Provider: Edgardo Frankel Consulting Providers: Aurea La Discharge Orders/Prescriptions Prescriptions: New hydromorphone 2 mg Tablet 2 mg PO Q4H PRN PRN (Reason: Pain Score 4-10) 5 Days Qty: 30 0RF loperamide 2 mg Capsule 2 mg PO ACHS PRN (Reason: Diarrhea) Qty: 30 0RF bisoprolol fumarate 5 mg Tablet 5 mg PO DAILY Qty: 30 0RF lisinopril 10 mg Tablet 10 mg PO DAILY Qty: 0 0RF dicyclomine 10 mg capsule 10 mg PO ACHS PRN (Reason: abdominal cramping) Qty: 30 0RF Continued potassium chloride 10 mEq tablet extended release 10 meq PO DAILY Label Comments: TAKE 1 TABLET BY MOUTH TWICE A DAY morphine 30 mg tablet extended release 30 mg PO BID Label Comments: TAKE 1 TABLET BY MOUTH EVERY 12 HOURS FOR 14 DAYS. FOR PAIN. simvastatin 40 mg tablet 40 mg PO QHS Label Comments: TAKE 1 TABLET BY MOUTH AT BEDTIME omeprazole 20 mg capsule,delayed release(DR/EC) 20 mg PO DAILY Label Comments: TAKE 1 CAPSULE BY MOUTH EVERY DAY enoxaparin 60 mg/0.6 mL syringe 60 mg subcut BID Label Comments: INJECT 0.5 ML SUBCUTANEOUSLY EVERY 12 HOURS. Discontinued oxycodone 5 mg tablet 5 mg PO Q4H PRN PRN (Reason: Pain) Label Comments: TAKE 2 TABLETS BY MOUTH EVERY 4 HOURS NEEDED FOR PAIN FOR UP TO 7 DAYS. Referrals / Follow Up: Edgardo Frankel DO [Primary Care Provider] - Within 2 Weeks Rickie Jimenez DO [Med Staff - Active Staff] - Within 1 Week Disposition Disposition (needs filled in before D/C Order can be placed): Home, Self Care
--- NOTE | 2022-07-28 09:25 | DS.PCM_ITS ---
Providers Date of Admission: 07/25/22 Primary Care Physician: Dr. Edgardo Frankel, DO Reason For Visit: ABD PAIN, PANCREATITIS, PANCREATIC CANCER Diagnosis Discharge Diagnosis (1) Abdominal pain: Status: Acute Code(s): R10.9 - Unspecified abdominal pain Qualifiers: Abdominal location: generalized Qualified Code(s): R10.84 - Generalized abdominal pain Plan: Suprapubic Ongoing, but improved Continue MS contin. DC PRN oxycodone to PRN hydromorphone. Continue dicyclomine Encouraged patient to eat Discussed purpose of palliation. (2) Acute pancreatitis: Status: Acute Code(s): K85.90 - Acute pancreatitis without necrosis or infection, unspecified Qualifiers: Pancreatitis type: other Acute pancreatitis complication: uninfected necrosis Qualified Code(s): K85.81 - Other acute pancreatitis with uninfected necrosis Plan: Noted 4cm necrotic mass in body of pancreas, but not TTP on exam. (3) PAD (peripheral artery disease): Status: Inactive Code(s): I73.9 - Peripheral vascular disease, unspecified Plan: Cotinue ASA (4) Primary malignant neoplasm of pancreas with metastasis to other site: Status: Acute Code(s): C25.9 - Malignant neoplasm of pancreas, unspecified Plan: Stage IV Pancreatic Cancer with metastatic disease (liver, lymph nodes) w/ Neutropenic, Lymphopenia, Chronic anemia: Ongoing chemotherapy, most recently 5 days prior, 2nd course, following w/ Dr. Jimenez, will obtain mag and phos levels and replete if needed. Did discuss patient case with Dr. Jimenez who see in the a.m. as an on formal evaluation with no formal consultation placed DW Dr. Jimenez Plan Chronic conditions: * Hypertension: Continue home regimen including lisinopril, bisoprolol, holding HCTZ, PRN hydralazine. * Hyperlipidemia: Continue home statin regimen. * Tobacco Abuse: Encouraged cessation, inpatient consultation per RT, NR if desired. * History of ischemic colitis: Status post subtotal colectomy with end ileostomy 01/01/2022. * PAD: Patient with history of peripheral arterial stenosis requiring stenting to the right lower extremity, unclear specific region, continue splint, hypertensive regimen with adjustments as noted. * Severe protein calorie malnutrition: Evidenced by significant weight loss, poor oral intake, nutrition consulted for recommendations. CODE status: Patient VAUGHN is his who is and living will is currently in place. Discussed CODE status at length including difference between FULL code, DNR-CCA and DNR-CC status. Following discussions about the differences in these status, requested Full Code status. DC home. Medications at Discharge Home Medications potassium chloride 10 mEq tablet,extended release 10 meq PO DAILY supplement 12/28/21 enoxaparin 60 mg/0.6 mL subcutaneous syringe 60 mg subcut BID blood thinner 07/25/22 morphine 30 mg tablet,extended release 30 mg PO BID pain 07/25/22 omeprazole 20 mg capsule,delayed release 20 mg PO DAILY gerd 07/25/22 simvastatin 40 mg tablet 40 mg PO QHS cholestrol 07/25/22 bisoprolol fumarate 5 mg tablet 5 mg PO DAILY #30 tabs 07/28/22 dicyclomine 10 mg capsule 10 mg PO ACHS PRN abdominal cramping #30 caps 07/28/22 hydromorphone 2 mg tablet 2 mg PO Q4H PRN PRN Pain Score 4-10 5 days #30 tabs 07/28/22 lisinopril 10 mg tablet 10 mg PO DAILY #0 tabs 07/28/22 loperamide 2 mg capsule 2 mg PO ACHS PRN Diarrhea #30 caps 07/28/22 Hospital Course Operations None Procedures None Summary of Care Provided Minutes Spent on Discharge: 32 Medical Records Data Medical Nutrition Assessment Dietitian: Malnutrition Criteria Met Start: 07/26/22 12:13 Freq: Status: Active Protocol: Document 07/26/22 12:13 TUTU (Rec: 07/26/22 12:13 [facility] [id number]) Nutrition Malnutrition Evidence of Malnutrition Exists Yes Malnutrition (severe): Chronic Evidenced By Suboptimal Energy Intake ( Severe),Weight Loss (Severe), Physical Changes (Severe) Clinical Problem Chronic Disease or Condition Related Malnutrition Etiology related to pancreatic cancer making it difficult for pt to consume adequate nutrition to meet est nutritional needs Signs/Symptoms as evidenced by 38.1% wt loss x 9 months and meeting <50-75% of est nutritional needs. Pt noted to have fat/muscle loss in face (temporal, buccal, orbitals), upper body ( clavicle, acromion, arms) Status Active Problem Recommendation Dietitian Recommendations/Changes As medically able, rec diet as tolerated to Transitional diet w/ goal for liberal regular diet d/t signs and symptoms of malnutrition. Will readdress provision of oral nutrition supplement w/ pt when able to resume po diet . Rec nutrition support if NPO anticipated >3 days and if in accordance w/ pt/family wishes Monitor for signs of refeeding syndrome when po diet resumes . Weight / BMI Weight Weight: 50 kg Body Mass Index (BMI) 15.6 ABG / Lab / Microbiology Data Result Diagrams: 07/27/22 06:20 07/27/22 06:20 D/C Instructions Discharge Diet: No restrictions and Light diet - advance as tolerated Call your doctor if you observe: - (worsening abdominal pain. ) Meaningful Use Info Meaningful Use Diagnoses (Choose all that apply): None applicable Discharge Plan Admission Admit Date/Time: 07/25/22 16:18 Primary Reason for Your Visit: abdominal pain. Attending Provider: Abel Santana Primary Care Provider: Edgardo Frankel Consulting Providers: Aurea La Discharge Orders/Prescriptions Prescriptions: New hydromorphone 2 mg Tablet 2 mg PO Q4H PRN PRN (Reason: Pain Score 4-10) 5 Days Qty: 30 0RF loperamide 2 mg Capsule 2 mg PO ACHS PRN (Reason: Diarrhea) Qty: 30 0RF bisoprolol fumarate 5 mg Tablet 5 mg PO DAILY Qty: 30 0RF lisinopril 10 mg Tablet 10 mg PO DAILY Qty: 0 0RF dicyclomine 10 mg capsule 10 mg PO ACHS PRN (Reason: abdominal cramping) Qty: 30 0RF Continued potassium chloride 10 mEq tablet extended release 10 meq PO DAILY Label Comments: TAKE 1 TABLET BY MOUTH TWICE A DAY morphine 30 mg tablet extended release 30 mg PO BID Label Comments: TAKE 1 TABLET BY MOUTH EVERY 12 HOURS FOR 14 DAYS. FOR PAIN. simvastatin 40 mg tablet 40 mg PO QHS Label Comments: TAKE 1 TABLET BY MOUTH AT BEDTIME omeprazole 20 mg capsule,delayed release(DR/EC) 20 mg PO DAILY Label Comments: TAKE 1 CAPSULE BY MOUTH EVERY DAY enoxaparin 60 mg/0.6 mL syringe 60 mg subcut BID Label Comments: INJECT 0.5 ML SUBCUTANEOUSLY EVERY 12 HOURS. Discontinued oxycodone 5 mg tablet 5 mg PO Q4H PRN PRN (Reason: Pain) Label Comments: TAKE 2 TABLETS BY MOUTH EVERY 4 HOURS NEEDED FOR PAIN FOR UP TO 7 DAYS. Referrals / Follow Up: Edgardo Frankel DO [Primary Care Provider] - Within 2 Weeks Rickie Jimenez DO [Med Staff - Active Staff] - Within 1 Week Disposition Disposition (needs filled in before D/C Order can be placed): Home, Self Care Charges/Coding Visit Charges Inpatient E&M: 34545 Disch Hosp
[2022-07-28] MEDS: morphine SR 15 MG Tablet 30 MG PO (10:28)
[2022-07-28] MEDS: Loperamide 2 MG Capsule 4 MG PO (10:29)
--- NOTE | 2022-07-28 10:39 | PHA.DC.MC ---
Pharmacy Service has performed discharge medication reconciliation and counseling for this patient. Appeared that lisinopril and bisoprolol were new. Prescriptions for lisinopril and bisoprolol were not transmitted to patient's pharmacy. Spoke to Dr. Santana, he said they are both home medications so would not need new prescriptions. 1. BISOPROLOL 5MG PO DAILY 2. DICYCLOMINE 10MG PO ACHS PRN ABDOMINAL CRAMPING 3. HYDROMORPHONE 2MG PO Q4H PRN PAIN 4-10 4. LISINOPRIL 10MG PO DAILY 5. LOPERAMIDE 2MG PO ACHS PRN DIARRHEA The patient's discharge medication list was reviewed for discrepancies and discrepancies were resolved. Home Medications potassium chloride 10 mEq tablet,extended release 10 meq PO DAILY supplement 12/28/21 enoxaparin 60 mg/0.6 mL subcutaneous syringe 60 mg subcut BID blood thinner 07/25/22 morphine 30 mg tablet,extended release 30 mg PO BID pain 07/25/22 omeprazole 20 mg capsule,delayed release 20 mg PO DAILY gerd 07/25/22 simvastatin 40 mg tablet 40 mg PO QHS cholestrol 07/25/22 bisoprolol fumarate 5 mg tablet 5 mg PO DAILY #30 tabs 07/28/22 dicyclomine 10 mg capsule 10 mg PO ACHS PRN abdominal cramping #30 caps 07/28/22 hydromorphone 2 mg tablet 2 mg PO Q4H PRN PRN Pain Score 4-10 5 days #30 tabs 07/28/22 lisinopril 10 mg tablet 10 mg PO DAILY #0 tabs 07/28/22 loperamide 2 mg capsule 2 mg PO ACHS PRN Diarrhea #30 caps 07/28/22 The patient was counseled on the following discharge medications and changes in medications for homegoing were reviewed. The Reason for Use, instructions for use, and potential side effects were reviewed for all new medications. The patient's questions regarding all of their medications were answered. The patient was able to verbally demonstrate an understanding of their discharge medications. Patient counseled by pharmacy technology instructor, Daniel.
--- NOTE | 2022-07-28 11:04 | CASEMGMT ---
DARIA CM in to pt room, pt lying in bed. No therapy recommended. Pt states he feels safe going home and denies any homegoing needs.
== END 2022-07-28 14:15 | disposition home or self-care (01) | DRG 438 ==
LOC: ED 16:11 → MS3 16:44
PROVIDERS: Admitting Provider Family Medicine; Emergency Provider Emergency Medicine; PCP Student in an Organized Health Care Education/Training Program
DX: K85.91 Acute pancreatitis with uninfected necrosis, unspecified (principal); E43 Unspecified severe protein-calorie malnutrition; C25.9 Malignant neoplasm of pancreas, unspecified; C78.7 Secondary malignant neoplasm of liver and intrahepatic bile duct; C77.9 Secondary and unspecified malignant neoplasm of lymph node, unspecified; Z68.1 Body mass index [BMI] 19.9 or less, adult; D70.1 Agranulocytosis secondary to cancer chemotherapy; I73.9 Peripheral vascular disease, unspecified; Z93.2 Ileostomy status; I10 Essential (primary) hypertension; E78.00 Pure hypercholesterolemia, unspecified; Z79.01 Long term (current) use of anticoagulants; Z87.891 Personal history of nicotine dependence; T45.1X5A Adverse effect of antineoplastic and immunosuppressive drugs, initial encounter; Z79.82 Long term (current) use of aspirin; Z79.899 Other long term (current) drug therapy
CPT/HCPCS: 36591; 74177; 80048; 80053; 83605; 83690; 83735; 84100; 85025; 97162; 97166; 97802; 99285; J7030; Q9967; A4216; J2405

== ENCOUNTER 2022-08-25 12:37 | Emergency (ER) | payer BC, SELFPAY ==
[2022-08-25 12:38] VITALS: BP 112/81; PULSE 126; RESP 18; TEMP 36.2; O2SAT 100; BMI 15.2
[2022-08-25] MEDS: 0.9% Normal Saline 1,000 ML 1000 ML IV (14:10)
[2022-08-25 14:12] VITALS: PULSE 113; RESP 18; O2SAT 98
[2022-08-25 14:13] LABS: Absolute Lymphocyte Count 0.33 X10^3/uL (0.83-4.51); Absolute Neutrophil Count 10.8 X10^3/uL (2.0-7.7); Basophil# 0.03 X10^3/uL; Basophil% 0.3 % (0-1); Hematocrit 35.4 % (40-54); Hemoglobin 11.4 g/dL (13.0-16.5); Lymphocyte # 0.33 X10^3/ul (0.83-4.51); Lymphocyte % 2.9 % (19-41); Mean Corp Hgb Conc 32.2 g/dL (32-36); Mean Corpuscular Hgb 29.3 pg (27.0-32.0); Mean Platelet Vol. 10.7 fl (6.2-12.0); Monocyte# 0.04 X10^3/uL; Monocyte% 0.4 % (0-10); NRBC Flagged by Analyzer 0.3 % (0-5); Neutrophil # 10.79 X10^3/uL (2.7-7.7); Neutrophil % 96.1 % (47-70); POSITIVE DIFFERENTIAL YES; Platelet Count 181 K/mm3 (150-450); RBC Distribution Width CV 18.2 % (11.6-14.6); RBC Distribution Width SD 57.8 fl (35.1-43.9); Red Blood Count 3.89 M/mm3 (4.6-6.2); White Blood Count 11.2 K/mm3 (4.4-11.0)
[2022-08-25 14:15] LABS: Differential Indicated SCAN CRITERIA MET
[2022-08-25 14:29] LABS: ALB/GLOB Ratio 0.6 RATIO (0.9-2.4); AST(SGOT) 33 U/L (15-37); Alanine Aminotransfer ALT/SGPT 54 U/L (16-61); Albumin, Serum 2.4 g/dL (3.2-5.0); Alkaline Phosphatase 146 U/L (45-117); Anion Gap 8 (5-15); BUN 19 mg/dL (7-18); BUN/Creat Ratio 30.3 RATIO (10-20); Calcium,Total 8.8 mg/dL (8.5-10.1); Chloride 104 mmol/L (98-107); Creatinine, Serum 0.63 mg/dL (0.70-1.30); EST Glomerular Filtration Rate 138 mL/min (>60); Est Glom Filt Rate - Afr Amer 167 mL/min (>60); Globulin 4.3 g/dL (2.2-4.2); Glucose 146 mg/dL (74-106); Lipase 142 U/L (73-393); Potassium 4.2 mmol/L (3.5-5.1); Protein, Total 6.7 g/dL (6.4-8.2); Sodium Level 138 mmol/L (136-145)
--- NOTE | 2022-08-25 14:34 | EDS_ITS ---
HPI History of Present Illness Chief Complaint: Nausea/Vomiting Narrative Narrative: 62-year-old male with history of pancreatic cancer who currently sees Dr. Jimenez is on chemotherapy. Apparently he had his last treatment on Tuesday. Has been nauseous since then. He has abdominal pain and points to the bilateral lower quadrant. Patient has history of pancreatitis as well as pancreatic pseudocyst. In December of this year the patient had to be transferred from [facility] to [facility] and ended up being diagnosed with ischemic colitis he is currently status post colectomy and ileostomy since January 01, 2022. At the time of the surgery he had postoperative E. coli bacteremia and a pancreatic leak which cultured out Bacteroides. He had an IR drain on 02/18/2022 and was on Zosyn from 02/17/2022 to 03/11/2022. He was readmitted 03/31/2020 through 04/05/2023. Patient currently states initially thought he was constipated but has had fairly normal stool output in his ostomy bag. He is not had any fevers, chills. He complains more of nausea and vomiting. He has not eaten since yesterday. PFSH PFS Medical History Abnormal CT scan, colon Diffuse abdominal pain High cholesterol HTN (hypertension) PAD (peripheral artery disease) Pancreatic cancer Primary malignant neoplasm of pancreas with metastasis to other site Right inguinal hernia Tobacco use Home Medications potassium chloride 10 mEq tablet,extended release 10 meq PO DAILY supplement 12/28/21 [History Last Taken 12/27/21] enoxaparin 60 mg/0.6 mL subcutaneous syringe 60 mg subcut BID blood thinner 07/25/22 [History Last Taken Unknown] morphine 30 mg tablet,extended release 30 mg PO BID pain 07/25/22 [History Last Taken Unknown] omeprazole 20 mg capsule,delayed release 20 mg PO DAILY gerd 07/25/22 [History Last Taken Unknown] simvastatin 40 mg tablet 40 mg PO QHS cholestrol 07/25/22 [History Last Taken Unknown] bisoprolol fumarate 5 mg tablet 5 mg PO DAILY #30 tabs 07/28/22 [Rx Last Taken Unknown] dicyclomine 10 mg capsule 10 mg PO ACHS PRN abdominal cramping #30 caps 07/28/22 [Rx Last Taken Unknown] hydromorphone 2 mg tablet 2 mg PO Q4H PRN PRN Pain Score 4-10 5 days #30 tabs 07/28/22 [Rx Last Taken Unknown] lisinopril 10 mg tablet 10 mg PO DAILY #0 tabs 07/28/22 [Rx Last Taken Unknown] loperamide 2 mg capsule 2 mg PO ACHS PRN Diarrhea #30 caps 07/28/22 [Rx Last Taken Unknown] Allergy/AdvReac Type Severity Reaction Status Date / Time No Known Allergies Allergy Verified 08/25/22 12:38 Family History Mother Pancreatic cancer Father Prostate cancer Surgical History H/O ileostomy History of colectomy S/P peripheral artery angioplasty with stent placement Social History household members: spouse Smoking Status: Light Smoker (<10/day) how long ago did patient quit smoking: Prior 1-1.5 ppd (16/pack) cigars since teen, quit intermittently, now 4-5. alcohol intake: former details: Sober since 12/2021, prior had drank 1 pint whiskey/bourbon daily. substance use type: does not use ROS ROS ED Constitutional Constitutional ED: Denies chills or fever(s) Eyes Eyes: Denies change in vision or diplopia ENT ENT ED: Denies rhinorrhea or sore throat Cardiovascular Cardiovascular: Denies chest pain or palpitations Respiratory/Chest Respiratory/Chest: Denies cough or dyspnea Gastrointestinal Gastrointestinal: Reports abdominal pain, constipation, nausea and vomiting Genitourinary Genitourinary ED: Denies dysuria or hematuria Musculoskeletal Musculoskeletal: Denies arthralgias Integumentary Denies abscess Neurologic Neurologic: Denies headache(s) or paresthesias Psychiatric Psychiatric: Denies anxiety or depression EXAM Physical Exam Const Vital Signs: 08/25/22 12:38 08/25/22 14:12 08/25/22 14:43 Temperature 97.2 F L Temperature Source Temporal Pulse Rate 126 H 113 H 102 H Respiratory Rate 18 18 18 Blood Pressure 112/81 H 119/76 Blood Pressure Mean 91 90 Pulse Ox 100 98 100 Oxygen Delivery Method Room Air Room Air Room Air 08/25/22 17:21 Temperature Temperature Source Pulse Rate 108 H Respiratory Rate 18 Blood Pressure 119/74 Blood Pressure Mean 89 Pulse Ox 99 Oxygen Delivery Method Room Air Positive cachectic General Appearance ED: cachectic and NAD; Negative for pallor Nutritional Appearance: cachectic HEENT Reports dry mucous membranes Mouth ED: Yes dry mucous membranes Mouth: dry mucous membranes Eyes PERRL and EOMs intact bilaterally General Eye ED: Negative for pale conjunctiva Neck no lymphadenopathy and supple Chest Wall inspection of chest normal Resp normal respiratory effort and clear to auscultation bilaterally Cardio regular rate and regular rhythm GI GI Narrative: Ostomy bag noted to have brown stool Palpation: tender LLQ and RUQ Extremity normal to inspection Neuro oriented x3 and CN's II-XII intact bilaterally Sensorium / Orientation: alert Psych mental status grossly normal Skin no wounds General Skin Exam: Negative for jaundice or pallor MDM MDM MDM Narrative Medical decision making narrative: Patient presenting with nausea, vomiting, abdominal pain. He complains of pain in the bilateral lower quadrants. He states initially thought he was constipated but has had some ostomy output and it is brown stool. He is not had a fever. Patient takes Dilaudid 2 mg p.o. every 4 hours at home as well as morphine 30 mg p.o. twice daily. States he still having pain. CBC is obtained and his white blood cell count is minimally elevated 11.2. Hemoglobin 11.4 and stable. Platelets normal at 181. Renal function and electrolytes are normal. LFTs within normal limits with exception of alkaline phosphatase 146. Lipase normal at 42. Patient was initially medicated with morphine and Haldol and had good relief of his pain and nausea. I obtained a CT of abdomen pelvis which shows concern for right-sided small bowel obstruction associated with patient's previous subtotal colectomy/Ostomy. NG tube was placed. I spoke with general surgery on-call and was recommend the patient be transferred due to his extensive surgical history and postoperative problems. I spoke with Dr. Vega who knows the patient as he did his surgical repairs before. He states that hepatobiliary at [facility] has been caring for him extensively. He accepted the transfer as an ER to ER transfer. Patient will be assessed there and will be determined where he is placed. Patient will be transferred when EMS is available however it sounds like it will take at least 2 hours. Impression: 1. Nausea/vomiting 2. Small bowel obstruction 3. History of metastatic pancreatic cancer Lab Data Attestation: I reviewed the patient's lab results. Labs: Laboratory Results - last 24 hr 08/25/22 08/25/22 14:05 14:05 WBC 11.2 H RBC 3.89 L Hgb 11.4 L Hct 35.4 L MCV 91.0 MCH 29.3 MCHC 32.2 RDW Std Deviation 57.8 H RDW Coeff of Kiko 18.2 H Plt Count 181 MPV 10.7 Immature Gran % (Auto) 0.300 Neut % (Auto) 96.1 H Lymph % (Auto) 2.9 L [place] % (Auto) 0.4 Eos % (Auto) 0.0 Baso % (Auto) 0.3 Absolute Neuts (auto) 10.8 H Absolute Lymphs (auto) 0.33 L Nucleated RBC % 0.3 Differential Comment COMMENT Sodium 138 Potassium 4.2 Chloride 104 Carbon Dioxide 26.0 Anion Gap 8 BUN 19 H Creatinine 0.63 L Estim Creat Clear Calc 79.00 Est GFR (MDRD) Af Amer 167 Est GFR (MDRD) Non-Af 138 BUN/Creatinine Ratio 30.3 H Glucose 146 H Calcium 8.8 Total Bilirubin 0.80 AST 33 ALT 54 Alkaline Phosphatase 146 H Total Protein 6.7 Albumin 2.4 L Globulin 4.3 H Albumin/Globulin Ratio 0.6 L Lipase 142 Radiography Diagnostic Testing: Clinical Impression(s) from Imaging Studies Abdomen/Pelvis CT 08/25/22 15:19 IMPRESSION: Small bowel obstruction down to the distal right lower quadrant. Hepatic metastasis. Stable appearance of the pancreas with multiple masses and increased markings in the peripancreatic fat. Electronically Signed: Anthony Giron MD at 15:55 EDT , Discharge Plan Triage Chief Complaint: Nausea/Vomiting ED Provider: Bola Ruiz Dx/Rx/DC Orders Prescriptions: No Action potassium chloride 10 mEq tablet extended release 10 meq PO DAILY Label Comments: TAKE 1 TABLET BY MOUTH TWICE A DAY morphine 30 mg tablet extended release 30 mg PO BID Label Comments: TAKE 1 TABLET BY MOUTH EVERY 12 HOURS FOR 14 DAYS. FOR PAIN. simvastatin 40 mg tablet 40 mg PO QHS Label Comments: TAKE 1 TABLET BY MOUTH AT BEDTIME omeprazole 20 mg capsule,delayed release(DR/EC) 20 mg PO DAILY Label Comments: TAKE 1 CAPSULE BY MOUTH EVERY DAY enoxaparin 60 mg/0.6 mL syringe 60 mg subcut BID Label Comments: INJECT 0.5 ML SUBCUTANEOUSLY EVERY 12 HOURS. hydromorphone 2 mg Tablet 2 mg PO Q4H PRN PRN (Reason: Pain Score 4-10) 5 Days Qty: 30 0RF loperamide 2 mg Capsule 2 mg PO ACHS PRN (Reason: Diarrhea) Qty: 30 0RF bisoprolol fumarate 5 mg Tablet 5 mg PO DAILY Qty: 30 0RF lisinopril 10 mg Tablet 10 mg PO DAILY Qty: 0 0RF dicyclomine 10 mg capsule 10 mg PO ACHS PRN (Reason: abdominal cramping) Qty: 30 0RF Primary Care Provider: Edgardo Frankel Referrals: Edgardo Frankel DO [Primary Care Provider] -
[2022-08-25] MEDS: Morphine 4 MG/ML Syringe IV ×2 (14:39→17:35)
[2022-08-25] MEDS: Haloperidol Lactate 5 MG/ML Vial 2 MG IV (14:40)
[2022-08-25 14:43] VITALS: BP 119/76; PULSE 102; RESP 18; O2SAT 100
--- NOTE | 2022-08-25 15:19 | CT_ITS ---
STUDY: CT ABDOMEN AND PELVIS WITH CONTRAST REASON FOR EXAM: Male, 62 years old. Lower abdominal pain WITH PANCREATIC CANCER WITH METS RADIATION DOSAGE (If Supplied By Facility): CTDIvol = ( 5.68 ) mGy, DLP = ( 237.03 ) mGycm TECHNIQUE: Transaxial images were obtained from the dome of the diaphragm to the symphysis pubis without oral contrast. 100 ML ISOVUE 370 was administered. Sagittal and coronal images were reconstructed. Individualized dose optimization techniques were used for this CT. COMPARISON: Comparison is made with prior study dated 07/25/2022. FINDINGS: The visualized lung bases are unremarkable. The visualized portions of the heart are within normal limits. Stable liver metastasis. Normal gallbladder and extrahepatic biliary system. Normal spleen. Stable appearance of the pancreas with multiple cystic masses and enlargement especially involving the body and tail portions of the pancreas. Stable increased markings in the peripancreatic region. Normal bilateral adrenal glands. Normal right kidney. Normal left kidney. Normal visualized stomach. There are dilated loops of the small intestine with a non-distended colon consistent with a small bowel obstruction. Right lower quadrant colostomy. Prior resection of the transverse colon and splenic flexure. There is non-visualization of the appendix. There is diffuse atherosclerotic calcification of the abdominal aorta, without a demonstrated aneurysm. Normal inferior vena cava. Normal retroperitoneum. Normal urinary bladder. An ostomy is seen in the right anterior lower quadrant. Normal osseous structures. CT/Abdomen/Pelvis W IV Cont ONLY IMPRESSION: Small bowel obstruction down to the distal right lower quadrant. Hepatic metastasis. Stable appearance of the pancreas with multiple masses and increased markings in the peripancreatic fat. Electronically Signed: Anthony Giron MD at 15:55 EDT ,
[2022-08-25] MEDS: Oxymetazoline 0.05% 1 SPRAY SPRAY.BTL 2 SPRAY NASAL (17:11)
[2022-08-25] MEDS: Lidocaine Jelly 2% 20 ML Syringe (URO-JET) 1 APPLIC TOPICAL (17:11)
--- NOTE | 2022-08-25 17:20 | RAD_ITS ---
We are attempting to reach an attending provider to discuss findings. An addendum with communication details will be sent when the communication is complete. EXAM: XR ABDOMEN, 1 VIEW CLINICAL INDICATION: bowel obstruction -- KUB with both diaphragms for NG/OG Verification TECHNIQUE: Frontal supine view of the abdomen/pelvis. This report was created using [employer] report generation technology. COMPARISON: CT done earlier today FINDINGS: LOWER THORAX: See below. GASTROINTESTINAL TRACT: Abdominal appearance of the small bowel suggesting an obstruction. ORGANS: Unremarkable as visualized. No organomegaly. No abnormal calcifications. BONES/JOINTS: No acute pathology. SOFT TISSUES: No acute pathology. TUBES, LINES AND DEVICES: NG tube is in the right bronchus. RAD/Abdomen Single View (Portable) IMPRESSION: 1. NG tube is in the right bronchus. 2. Abdominal appearance of the small bowel suggesting an obstruction. Electronically Signed: Delbert Valencia MD at 17:50 EDT ,
[2022-08-25 17:21] VITALS: BP 119/74; PULSE 108; RESP 18; O2SAT 99
--- NOTE | 2022-08-25 17:49 | RAD_ITS ---
EXAM: XR ABDOMEN, 1 VIEW CLINICAL INDICATION: NG Insertion TECHNIQUE: Frontal supine view of the abdomen/pelvis. This report was created using [employer] report generation technology. COMPARISON: Study done earlier today. FINDINGS: LOWER THORAX: No acute pathology. GASTROINTESTINAL TRACT: Unremarkable. Non-obstructive. No bowel or stomach distention. ORGANS: Unremarkable as visualized. No organomegaly. No abnormal calcifications. BONES/JOINTS: No acute pathology. SOFT TISSUES: No acute pathology. TUBES, LINES AND DEVICES: There is a feeding tube/ nasogastric tube noted. The tip is in the region of the stomach. RAD/Abdomen Single View (Portable) IMPRESSION: There is a feeding tube/ nasogastric tube noted. The tip is in the region of the stomach. Case discussed with ER doctor. Electronically Signed: Delbert Valencia MD at 18:00 EDT ,
[2022-08-25 18:02] VITALS: BP 119/74; PULSE 108; RESP 18; TEMP 36.2; O2SAT 99
== END 2022-08-25 18:04 | disposition short-term general hospital (02) ==
LOC: ED 14:56
PROVIDERS: Emergency Provider Student in an Organized Health Care Education/Training Program; PCP Student in an Organized Health Care Education/Training Program; Visit Provider Student in an Organized Health Care Education/Training Program
DX: K56.609 Unspecified intestinal obstruction, unspecified as to partial versus complete obstruction (principal); R11.2 Nausea with vomiting, unspecified; F17.200 Nicotine dependence, unspecified, uncomplicated
CPT/HCPCS: 36591; 74018; 74177; 80053; 83690; 85025; 96361; 96374; 96375; 96376; 99285; Q9967; A4216

== ENCOUNTER 2022-10-13 17:30 | Emergency (ER) | payer BC, SELFPAY ==
[2022-10-13 17:31] VITALS: BP 115/76; PULSE 82; RESP 16; TEMP 37.4; O2SAT 98; BMI 14.1
[2022-10-13 18:16] VITALS: BP 115/76; PULSE 82; RESP 16; TEMP 37.4; O2SAT 98
--- NOTE | 2022-10-13 19:07 | CT_ITS ---
INDICATION: abdominal pain EXAMINATION: CT ABDOMEN AND PELVIS WITH CONTRAST - CT Abdomen And Pelvis W/ Contrast Injection TECHNIQUE: Helically acquired images were obtained of the abdomen and pelvis following IV contrast. A radiation dose optimization technique was used for this scan. IV Contrast dosage and agent: 100 mL of ISOVUE-370. Oral contrast: None. COMPARISON: CT abdomen and pelvis 08/25/2022. FINDINGS: LOWER CHEST: Lung bases are clear. No cardiomegaly or pericardial effusion. LIVER: Multiple hepatic hypodensities mostly unchanged with the exception of a segment 8 lesion, adjacent to the hepatic vein, increased in size from 9 mm to 13 mm. Normal size and contour of the liver. GALLBLADDER AND BILIARY TREE: No calcified gallstones. No gallbladder distension or wall edema. No intra- or extrahepatic biliary ductal dilation. PANCREAS: Pancreatic tail ductal dilation, pancreatic tail cysts are unchanged. Pancreatic body, hypodense pancreatic mass, stable or decreased in size. SPLEEN: Normal size without focal cystic or solid mass. ADRENAL GLANDS: No nodules. KIDNEYS, URETERS and BLADDER: Normal renal size and position. No mass. No hydronephrosis. Bladder is unremarkable. PERITONEUM: New ascites, not present on the prior exam. No intra-abdominal fat BOWEL: Right lower quadrant ostomy likely representing hemicolectomy with nonvisualized transverse and descending colon. This is unchanged compared to prior exam. No abnormally distended bowel loops or air fluid levels. No wall thickening or mass. No focal inflammatory changes. LYMPH NODES: Prominent mesenteric lymph nodes root of the small bowel. VESSELS: Chronic occlusion distal abdominal aorta with reconstitution of opacification the femoral arteries. Splenic vein isn''t opacified. Superior mesenteric vein and portal vein are within normal limits. There is some mild periportal edema, new. REPRODUCTIVE ORGANS: 4.2 cm diameter prostate gland; no significant enlargement. ABDOMINAL WALL: No discrete abdominal or pelvic wall hernia. BONES: No lytic or blastic abnormality. Subjective appearance of decreased bone mineral density. Linear sclerosis L5 vertebral body unchanged may represent prior injury and healing or degenerative sclerotic changes. CT/Abdomen/Pelvis WITH Contrast IMPRESSION: New intra-abdominal ascites. No appreciable change in pancreatic body mass and pancreatic tail pseudocysts and ductal dilation. Mildly prominent mesenteric lymph nodes. A small bowel are unchanged. Interval enlargement of a segment 8 hepatic hypodensity; from 9 to 13 mm in diameter. Other hepatic metastases not appreciably changed. Unchanged splenic vein thrombosis. Normal superior mesenteric vein and portal vein. Right colectomy and right lower quadrant ostomy site unchanged. Chronic thrombosis distal abdominal aorta with reconstitution of flow the level of the femoral arteries. Electronically Signed: Edgardo Robert DO at 21:41 EST ,
[2022-10-13] MEDS: 0.9% Normal Saline 1,000 ML 999 ML IV (19:22)
[2022-10-13] MEDS: Morphine 4 MG/ML Syringe IV (19:23)
--- NOTE | 2022-10-13 20:12 | ED.VIS.GI ---
HPI <RAFAL Hubbard - Last Filed: 10/13/22 22:52> HPI - GI History of Present Illness Chief Complaint: Abd Pain Narrative Narrative: Patient presents today with severe left-sided abdominal pain. He states this started Tuesday evening after he fell while walking up the steps and landed on his abdomen on top of a water jug. He states the pain has worsened since then and is worse when he moves and coughs. His PCP wanted him to come here to be sure he did not injure any of his internal organs. Patient does have a history of stage IV pancreatic cancer. He is getting palliative chemo and has not had a treatment in a month. Patient denies difficulty breathing, shortness of breath, nausea, vomiting, and diarrhea. PFS <RAFAL Hubbard - Last Filed: 10/13/22 22:52> [facility] Medical History Abnormal CT scan, colon Diffuse abdominal pain High cholesterol HTN (hypertension) PAD (peripheral artery disease) Pancreatic cancer Primary malignant neoplasm of pancreas with metastasis to other site Right inguinal hernia Tobacco use Home Medications potassium chloride 10 mEq tablet,extended release 10 meq PO DAILY supplement 12/28/21 [History Last Taken 12/27/21] enoxaparin 60 mg/0.6 mL subcutaneous syringe 60 mg subcut BID blood thinner 07/25/22 [History Last Taken Unknown] morphine 30 mg tablet,extended release 30 mg PO BID pain 07/25/22 [History Last Taken Unknown] omeprazole 20 mg capsule,delayed release 20 mg PO DAILY gerd 07/25/22 [History Last Taken Unknown] simvastatin 40 mg tablet 40 mg PO QHS cholestrol 07/25/22 [History Last Taken Unknown] bisoprolol fumarate 5 mg tablet 5 mg PO DAILY #30 tabs 07/28/22 [Rx Last Taken Unknown] dicyclomine 10 mg capsule 10 mg PO ACHS PRN abdominal cramping #30 caps 07/28/22 [Rx Last Taken Unknown] hydromorphone 2 mg tablet 2 mg PO Q4H PRN PRN Pain Score 4-10 5 days #30 tabs 07/28/22 [Rx Last Taken Unknown] lisinopril 10 mg tablet 10 mg PO DAILY #0 tabs 07/28/22 [Rx Last Taken Unknown] loperamide 2 mg capsule 2 mg PO ACHS PRN Diarrhea #30 caps 07/28/22 [Rx Last Taken Unknown] Allergy/AdvReac Type Severity Reaction Status Date / Time No Known Allergies Allergy Verified 10/13/22 17:31 Family History Mother Pancreatic cancer Father Prostate cancer Surgical History H/O ileostomy History of colectomy S/P peripheral artery angioplasty with stent placement Social History household members: spouse Smoking Status: Light Smoker (<10/day) how long ago did patient quit smoking: Prior 1-1.5 ppd (16/pack) cigars since teen, quit intermittently, now 4-5. alcohol intake: former details: Sober since 12/2021, prior had drank 1 pint whiskey/bourbon daily. substance use type: does not use ROS <RAFAL Hubbard - Last Filed: 10/13/22 22:52> ROS ED Constitutional Constitutional ED: Denies chills, fever(s) or sweats ENT ENT ED: Denies rhinorrhea or sore throat Cardiovascular Cardiovascular: Denies chest pain or palpitations Respiratory/Chest Respiratory/Chest: Denies cough, dyspnea, dyspnea on exertion, shortness of breath at rest or shortness of breath with exertion Gastrointestinal Gastrointestinal: Reports abdominal pain; Denies constipation, diarrhea, hematemesis, hematochezia, melena, nausea or vomiting Genitourinary Genitourinary ED: Denies dysuria, hematuria or urinary frequency Musculoskeletal Musculoskeletal: Denies back pain or neck pain Integumentary Denies abscess, Abrasions or rash Neurologic Neurologic: Denies headache(s) or weakness Psychiatric Psychiatric: Denies anxiety EXAM <RAFAL Hubbadr - Last Filed: 10/13/22 22:52> Physical Exam Const Vital Signs: 10/13/22 17:31 10/13/22 18:16 10/13/22 21:47 Temperature 99.3 F H 99.3 F H Temperature Source Temporal Temporal Pulse Rate 82 82 62 Respiratory Rate 16 16 18 Blood Pressure 115/76 115/76 115/69 Blood Pressure Mean 89 89 84 Pulse Ox 98 98 98 Oxygen Delivery Method Room Air Room Air Room Air Constitutional Narrative: Patient appears very frail and thin. HEENT Reports moist mucous membranes normocephalic and atraumatic; Negative for tenderness Eyes PERRL and EOMs intact bilaterally Neck no lymphadenopathy and supple Resp normal respiratory effort and clear to auscultation bilaterally Cardio regular rate, regular rhythm and no murmurs GI non-distended and no masses GI Narrative: Patient is very the entire left side of his abdomen. Auscultation: normoactive bowel sounds Palpation: soft Back/Spine Cervical Spine: Negative for cervical spine tenderness Thoracic Spine / Upper Back: Negative for thoracic spinal tenderness Lumbar Spine / Lower Back: Negative for lumbar spinal tenderness Extremity full ROM General Extremety ED: Negative for edema or tenderness General Extremity: Negative for edema Neuro CN's II-XII intact bilaterally, moves all extremities, no sensory deficits noted and gait normal Sensorium / Orientation: alert Psych mental status grossly normal and thought process normal Skin no wounds General Skin Exam: Negative for jaundice Lesions: no lesions Rashes: no rashes Trauma: Negative for abrasion <Dr. Savanah Alejandro DO - Last Filed: 10/14/22 01:54> Physical Exam Const Vital Signs: 10/13/22 17:31 10/13/22 18:16 10/13/22 21:47 Temperature 99.3 F H 99.3 F H Temperature Source Temporal Temporal Pulse Rate 82 82 62 Respiratory Rate 16 16 18 Blood Pressure 115/76 115/76 115/69 Blood Pressure Mean 89 89 84 Pulse Ox 98 98 98 Oxygen Delivery Method Room Air Room Air Room Air [facility] <RAFAL Hubbard - Last Filed: 10/13/22 22:52> [facility] Narrative Medical decision making narrative: Patient was given pain control here in the ED. His vital signs remained stable. CT of the abdomen and pelvis showed new onset ascites. Dr. Schmidt has been consulted on this and states that it is likely from his pancreatic cancer. He recommends that as long as patient is stable he should be able to discharge home safely and follow-up with his oncologist as soon as possible. I have discussed these findings with patient and his and advised them to discuss these findings with the oncologist. Patient is comfortable discharging home and states his pain is a lot more under control. I am comfortable with patient discharging home. I have given him return instructions. Lab Data Attestation: I reviewed the patient's lab results. Lab results narrative: Anemia. Elevated neutrophils and decreased lymphocytes. Elevated alkaline phosphatase. Decreased albumin. Creatinine 0.4. Anion gap 3. Labs: Laboratory Results - last 24 hr 10/13/22 10/13/22 10/13/22 20:12 20:12 20:12 WBC 11.1 H RBC 3.27 L Hgb 10.0 L Hct 31.5 L MCV 96.3 H MCH 30.6 MCHC 31.7 L RDW Std Deviation 64.8 H RDW Coeff of Kiko 18.6 H Plt Count 166 MPV 11.2 Immature Gran % (Auto) 0.400 Neut % (Auto) 83.3 H Lymph % (Auto) 9.5 L [place] % (Auto) 6.2 Eos % (Auto) 0.2 Baso % (Auto) 0.4 Absolute Neuts (auto) 9.3 H Absolute Lymphs (auto) 1.06 Nucleated RBC % 0 Sodium 142 Potassium 3.9 Chloride 111 H Carbon Dioxide 28.0 Anion Gap 3 L BUN 7 Creatinine 0.40 L Estim Creat Clear Calc 115.71 Est GFR (MDRD) Af Amer 280 Est GFR (MDRD) Non-Af 232 BUN/Creatinine Ratio 17.5 Glucose 91 Calcium 7.7 L Total Bilirubin 0.30 Direct Bilirubin 0.14 AST 13 L ALT 16 Alkaline Phosphatase 160 H Total Protein 4.9 L Albumin 1.7 L Globulin 3.2 Lipase 242 Radiography Diagnostic Testing: Clinical Impression(s) from Imaging Studies Abdomen/Pelvis CT 10/13/22 19:07 IMPRESSION: New intra-abdominal ascites. No appreciable change in pancreatic body mass and pancreatic tail pseudocysts and ductal dilation. Mildly prominent mesenteric lymph nodes. A small bowel are unchanged. Interval enlargement of a segment 8 hepatic hypodensity; from 9 to 13 mm in diameter. Other hepatic metastases not appreciably changed. Unchanged splenic vein thrombosis. Normal superior mesenteric vein and portal vein. Right colectomy and right lower quadrant ostomy site unchanged. Chronic thrombosis distal abdominal aorta with reconstitution of flow the level of the femoral arteries. Electronically Signed: Edgardo Robert DO at 21:41 EST , I reviewed CT and agree with radiologist impressions. This CT has also been reviewed by attending ED physician. <Dr. Savanah Alejandro, DO - Last Filed: 10/14/22 01:54> [facility] Lab Data Labs: Laboratory Results - last 24 hr 10/13/22 10/13/22 10/13/22 20:12 20:12 20:12 WBC 11.1 H RBC 3.27 L Hgb 10.0 L Hct 31.5 L MCV 96.3 H MCH 30.6 MCHC 31.7 L RDW Std Deviation 64.8 H RDW Coeff of Kiko 18.6 H Plt Count 166 MPV 11.2 Immature Gran % (Auto) 0.400 Neut % (Auto) 83.3 H Lymph % (Auto) 9.5 L [place] % (Auto) 6.2 Eos % (Auto) 0.2 Baso % (Auto) 0.4 Absolute Neuts (auto) 9.3 H Absolute Lymphs (auto) 1.06 Nucleated RBC % 0 Sodium 142 Potassium 3.9 Chloride 111 H Carbon Dioxide 28.0 Anion Gap 3 L BUN 7 Creatinine 0.40 L Estim Creat Clear Calc 115.71 Est GFR (MDRD) Af Amer 280 Est GFR (MDRD) Non-Af 232 BUN/Creatinine Ratio 17.5 Glucose 91 Calcium 7.7 L Total Bilirubin 0.30 Direct Bilirubin 0.14 AST 13 L ALT 16 Alkaline Phosphatase 160 H Total Protein 4.9 L Albumin 1.7 L Globulin 3.2 Lipase 242 Radiography Diagnostic Testing: Clinical Impression(s) from Imaging Studies Abdomen/Pelvis CT 10/13/22 19:07 IMPRESSION: New intra-abdominal ascites. No appreciable change in pancreatic body mass and pancreatic tail pseudocysts and ductal dilation. Mildly prominent mesenteric lymph nodes. A small bowel are unchanged. Interval enlargement of a segment 8 hepatic hypodensity; from 9 to 13 mm in diameter. Other hepatic metastases not appreciably changed. Unchanged splenic vein thrombosis. Normal superior mesenteric vein and portal vein. Right colectomy and right lower quadrant ostomy site unchanged. Chronic thrombosis distal abdominal aorta with reconstitution of flow the level of the femoral arteries. Electronically Signed: Edgardo Robert DO at 21:41 EST , Treatment and Re-Evaluation Narrative: I have personally performed a face to face assessment of the patient and have reviewed the LUIZA Note. I performed a substantive portion of the visit including all aspects of the following. My hess findings include: History is patient is 62-year-old male with history of stage IV pancreatic cancer currently on palliative chemotherapy presenting with worsening abdominal pain since he struck his abdomen on a water bottle when he fell up stairs. Patient is on oral morphine and Dilaudid at baseline. He also has a prior history of an ileostomy. No change in his stool output. No black or blood in his stool. No fever or chills. No other complaints at this time. Exam is Patient seen in bed, no acute distress. He is quite cachectic. Moist mucous membranes. Heart regular rate and rhythm. Lungs clear to auscultation bilaterally. Bowel sounds present. Ileostomy in place. It is draining appropriate looking stool. Diffuse tenderness to palpation, most pronounced on the left side. No peritoneal signs. No ascites or distention appreciated. No focal neurologic deficits. Normal tone throughout. Medical Decison Making Patient is evaluated for worsening abdominal pain. He has a pretty complex medical history on his abdomen most significantly for metastatic pancreatic cancer. Patient is given IV morphine and then IV Dilaudid for pain control. He does have improvement of his symptoms. Lab work is largely unremarkable. He has a minor leukocytosis of 11.1 which is nonspecific. There is no obvious source of infection. While his abdomen is tender does not peritoneal. CT of the abdomen pelvis shows multiple abnormalities with a new 1B new intra-abdominal ascites. Is not causing any respiratory distress. We spoke with GI who feels that likely this is malignant associated. He recommended further follow-up with patient's oncologist. Patient has improved pain control and is agreeable with going home. Patient is given return precautions. Is given additional dose of IV Dilaudid prior to discharge. Other additions or changes: [None] Discharge Plan Triage Chief Complaint: Abd Pain ED Midlevel Provider: Yudelka Hays ED Provider: Savanah Alejandro Dx/Rx/DC Orders Clinical Impression: Abdominal pain, Pancreatic cancer, Anemia Instructions: Abdominal Pain Prescriptions: No Action potassium chloride 10 mEq tablet extended release 10 meq PO DAILY Label Comments: TAKE 1 TABLET BY MOUTH TWICE A DAY morphine 30 mg tablet extended release 30 mg PO BID Label Comments: TAKE 1 TABLET BY MOUTH EVERY 12 HOURS FOR 14 DAYS. FOR PAIN. simvastatin 40 mg tablet 40 mg PO QHS Label Comments: TAKE 1 TABLET BY MOUTH AT BEDTIME omeprazole 20 mg capsule,delayed release(DR/EC) 20 mg PO DAILY Label Comments: TAKE 1 CAPSULE BY MOUTH EVERY DAY enoxaparin 60 mg/0.6 mL syringe 60 mg subcut BID Label Comments: INJECT 0.5 ML SUBCUTANEOUSLY EVERY 12 HOURS. hydromorphone 2 mg Tablet 2 mg PO Q4H PRN PRN (Reason: Pain Score 4-10) 5 Days Qty: 30 0RF loperamide 2 mg Capsule 2 mg PO ACHS PRN (Reason: Diarrhea) Qty: 30 0RF bisoprolol fumarate 5 mg Tablet 5 mg PO DAILY Qty: 30 0RF lisinopril 10 mg Tablet 10 mg PO DAILY Qty: 0 0RF dicyclomine 10 mg capsule 10 mg PO ACHS PRN (Reason: abdominal cramping) Qty: 30 0RF Primary Care Provider: Edgardo Frankel Referrals: Edgardo Frankel DO [Primary Care Provider] - Activity Restrictions/Additional Instructions: Please follow-up with oncologist as soon as possible. Please return if any worsening of symptoms. Disposition Disposition: Home, Self Care Discharge Date/Time: 10/13/22 23:10
[2022-10-13 20:18] LABS: Absolute Lymphocyte Count 1.06 X10^3/uL (0.83-4.51); Absolute Neutrophil Count 9.3 X10^3/uL (2.0-7.7); Basophil# 0.04 X10^3/uL; Basophil% 0.4 % (0-1); Eosinophil# 0.02 X10^3/uL; Eosinophils% 0.2 % (0-5); Hematocrit 31.5 % (40-54); Lymphocyte # 1.06 X10^3/ul (0.83-4.51); Lymphocyte % 9.5 % (19-41); Mean Corp Hgb Conc 31.7 g/dL (32-36); Mean Corpuscular Hgb 30.6 pg (27.0-32.0); Mean Corpuscular Volume 96.3 fL (80-94); Mean Platelet Vol. 11.2 fl (6.2-12.0); Monocyte# 0.69 X10^3/uL; Monocyte% 6.2 % (0-10); NRBC Flagged by Analyzer 0 % (0-5); Neutrophil # 9.27 X10^3/uL (2.7-7.7); Neutrophil % 83.3 % (47-70); Platelet Count 166 K/mm3 (150-450); RBC Distribution Width CV 18.6 % (11.6-14.6); RBC Distribution Width SD 64.8 fl (35.1-43.9); Red Blood Count 3.27 M/mm3 (4.6-6.2); White Blood Count 11.1 K/mm3 (4.4-11.0)
[2022-10-13] MEDS: HYDROmorphone 0.5 MG/0.5 ML SYRINGE IV ×2 (20:31→22:52)
[2022-10-13 20:35] LABS: Anion Gap 3 (5-15); BUN 7 mg/dL (7-18); BUN/Creat Ratio 17.5 RATIO (10-20); Calcium,Total 7.7 mg/dL (8.5-10.1); Chloride 111 mmol/L (98-107); EST Glomerular Filtration Rate 232 mL/min (>60); Est Glom Filt Rate - Afr Amer 280 mL/min (>60); Estimated Creatinine Clearance 115.71 ml/min; Glucose 91 mg/dL (74-106); Lipase 242 U/L (73-393); Potassium 3.9 mmol/L (3.5-5.1); Sodium Level 142 mmol/L (136-145)
[2022-10-13 21:13] LABS: AST(SGOT) 13 U/L (15-37); Alanine Aminotransfer ALT/SGPT 16 U/L (16-61); Albumin, Serum 1.7 g/dL (3.2-5.0); Alkaline Phosphatase 160 U/L (45-117); Bilirubin, Direct 0.14 mg/dL (0.00-0.30); Globulin 3.2 g/dL (2.2-4.2); Protein, Total 4.9 g/dL (6.4-8.2)
[2022-10-13 21:47] VITALS: BP 115/69; PULSE 62; RESP 18; O2SAT 98
== END 2022-10-13 23:10 | disposition home or self-care (01) ==
PROVIDERS: Physician Assistant; Emergency Provider Emergency Medicine; PCP Student in an Organized Health Care Education/Training Program; Visit Provider Emergency Medicine
DX: C25.9 Malignant neoplasm of pancreas, unspecified (principal); R10.9 Unspecified abdominal pain; E78.00 Pure hypercholesterolemia, unspecified; R18.8 Other ascites; I10 Essential (primary) hypertension; D64.9 Anemia, unspecified; Z87.891 Personal history of nicotine dependence
CPT/HCPCS: 74177; 80048; 80076; 83690; 85025; 96374; 96375; 96376; 99284; J7030; Q9967; A4216